=== PATIENT | female | born 1945 | race Caucasian/White ===

== ENCOUNTER → 2017-02-13 | Outpatient (CLI) | payer MEDICARE ==
--- NOTE | 2017-02-13 09:19 | MM ---
Reason for exam: follow-up at short interval from prior study. Last mammogram was performed 8 months ago. History: Patient is postmenopausal and has history of colon cancer at age 57. Benign excisional biopsy of the right breast. Took estrogen for 22 years 5 months beginning at age 44. Physical Findings: Nurse did not find any significant physical abnormalities on exam. MG 3D Diag Mammo W/Cad RT CC and MLO view(s) were taken of the right breast. Prior study comparison: June 04, 2016, bilateral MG 3d screening mammo w/cad. August 02, 2014, bilateral MG screening mammo w CAD. July 26, 2013, bilateral digital screening mammo w/CAD. The breast tissue is heterogeneously dense. This may lower the sensitivity of mammography. Finding: There are typically benign round, diffuse/scattered and grouped calcifications in the right breast. There is a chronic nodularity in the right breast. There is no discrete abnormality. These results were verbally communicated with the patient and result sheet given to the patient on 02/13/17. ASSESSMENT: Benign, BI-RAD 2 RECOMMENDATION: Return to routine screening mammogram schedule for both breasts. Back on schedule for May 2017.
== END | disposition home or self-care (01) ==
LOC: RADMAMWWP 07:04
PROVIDERS: ATTEND Family Medicine
DX: N63 Unspecified lump in breast (principal)
CPT/HCPCS: G0206; G0279

== ENCOUNTER → 2019-07-20 | Outpatient (CLI) | payer MEDICARE ==
--- NOTE | 2019-07-22 09:58 | MM ---
Reason for exam: screening (asymptomatic). Last mammogram was performed 2 years and 5 months ago. History: Patient is postmenopausal and has history of colon cancer at age 57. Family history of breast cancer in daughter at age 52. Benign excisional biopsy of the right breast. Taking estrogen for 22 years 5 months beginning at age 44. Physical Findings: A clinical breast exam by your physician is recommended on an annual basis and results should be correlated with mammographic findings. MG 3D Screening Mammo W/Cad Bilateral CC and MLO view(s) were taken. Prior study comparison: February 13, 2017, right breast MG 3d diag mammo w/cad RT. June 04, 2016, bilateral MG 3d screening mammo w/cad. There are scattered fibroglandular densities. No significant changes when compared with prior studies. ASSESSMENT: Benign, BI-RAD 2 RECOMMENDATION: Routine screening mammogram of both breasts in 1 year.
== END | disposition home or self-care (01) ==
LOC: RADMAMWWP 14:38
PROVIDERS: ATTEND Family Medicine
DX: Z12.31 Encounter for screening mammogram for malignant neoplasm of breast (principal)
CPT/HCPCS: 77063; 77067

== ENCOUNTER → 2020-07-31 | Outpatient (CLI) | payer MEDICARE ==
--- NOTE | 2020-07-31 17:11 | BD ---
EXAMINATION TYPE: Axial Bone Density DATE OF EXAM: 07/31/2020 COMPARISON: NONE CLINICAL HISTORY: Height: 65 Weight: 152.0 FRAX RISK QUESTIONS: Alcohol (3 or more units per day): no Family History (Parent hip fracture): no Glucocorticoids (More than 3mos): no (Ex: prednisone, prednisolone, methylprednisolone, dexamethasone, and hydrocortisone). History of Fracture in Adulthood: no Secondary Osteoporosis: 1. Type 1 Diabetes: no 2. Hyperthyroidism: no 3. Menopause before 45: yes 4. Malnutrition: no 5. Chronic liver disease: no Rheumatoid Arthritis: yes Current Tobacco Use: no RISK FACTORS HISTORY OF: Family History of Osteoporosis: no Active: yes Diet low in dairy products/other sources of calcium: yes Postmenopausal woman: Take estrogen and/or progesterone medications: yes How long: since age 44 Lost more than 2 inches in height since high school: no MEDICATIONS: imuran, gabapentin, celebrex, estradiol, flexeril, atenolol, xanax, lomotil, vit c Additional History: EXAM MEASUREMENTS: Bone mineral densitometry was performed using the Taplet System. Bone mineral density as measured about the Lumbar spine is: ----- L1-L4(G/cm2): 1.377 T Score Values are as follows: ----- L2: 1.3 ----- L3: 2.2 ----- L4: 2.0 ----- L1-L4: 1.6 Bone mineral density has: increased 22.7 % since study of: 09.11.2001 Bone mineral density about the R hip (g/cm2): 0.872 Bone mineral density about the L hip (g/cm2): 0.811 T Score values are as follows: -----R Neck: -1.2 -----L Neck: -1.6 -----R Total: -0.6 -----L Total: -0.9 Bone mineral density has: increased 7.3 % since study of: 09.11.2001 IMPRESSION: Osteopenia (T Score between -2.5 and -1). There is slightly increased risk of fracture and the patient may be considered for treatment. Re-Screen 2-5 years. NOTE: T-SCORE=SD OF THE YOUNG ADULT MEAN.
--- NOTE | 2020-08-01 10:16 | MM ---
Reason for exam: screening (asymptomatic). Last mammogram was performed 1 year ago. History: Patient is postmenopausal and has history of colon cancer at age 57. Family history of breast cancer in daughter at age 52. Benign excisional biopsy of the right breast. Taking estrogen for 22 years 5 months beginning at age 44. Physical Findings: A clinical breast exam by your physician is recommended on an annual basis and results should be correlated with mammographic findings. MG 3D Screening Mammo W/Cad Bilateral CC and MLO view(s) were taken. Prior study comparison: July 20, 2019, bilateral MG 3d screening mammo w/cad. February 13, 2017, right breast MG 3d diag mammo w/cad RT. There are scattered fibroglandular densities. Finding: There are typically benign round, diffuse/scattered and grouped calcifications in both breasts. There is no discrete abnormality. ASSESSMENT: Benign, BI-RAD 2 RECOMMENDATION: Routine screening mammogram of both breasts in 1 year.
== END | disposition home or self-care (01) ==
LOC: RADMAMWWP 08:16
PROVIDERS: ATTEND Family Medicine
DX: Z12.31 Encounter for screening mammogram for malignant neoplasm of breast (principal); M85.80 Other specified disorders of bone density and structure, unspecified site; Z80.3 Family history of malignant neoplasm of breast
CPT/HCPCS: 77063; 77067; 77080

== ENCOUNTER → 2021-09-12 | Outpatient (CLI) | payer MEDICARE ==
--- NOTE | 2021-09-13 14:26 | MM ---
Reason for exam: screening (asymptomatic). Last mammogram was performed 1 year and 1 month ago. History: Patient is postmenopausal and has history of colon cancer at age 57. Family history of breast cancer in daughter at age 52. Benign excisional biopsy of the right breast. Taking estrogen for 23 years 5 months beginning at age 44. Physical Findings: A clinical breast exam by your physician is recommended on an annual basis and results should be correlated with mammographic findings. MG 3D Screening Mammo W/Cad Bilateral CC and MLO view(s) were taken. Prior study comparison: July 31, 2020, bilateral MG 3d screening mammo w/cad. July 20, 2019, bilateral MG 3d screening mammo w/cad. There are scattered fibroglandular densities. Focal asymmetry left breast. No significant changes when compared with prior studies. ASSESSMENT: Benign, BI-RAD 2 RECOMMENDATION: Routine screening mammogram of both breasts in 1 year.
== END | disposition home or self-care (01) ==
LOC: RADMAMWWP 08:26
PROVIDERS: ATTEND Family Medicine
DX: Z12.31 Encounter for screening mammogram for malignant neoplasm of breast (principal); Z85.038 Personal history of other malignant neoplasm of large intestine; Z80.3 Family history of malignant neoplasm of breast
CPT/HCPCS: 77063; 77067

== ENCOUNTER → 2022-07-17 | Outpatient (CLI) | payer MEDICARE ==
--- NOTE | 2022-07-17 15:51 | XR ---
EXAMINATION TYPE: XR chest 2V DATE OF EXAM: 07/17/2022 COMPARISON: NONE TECHNIQUE: PA and lateral views submitted. HISTORY: Presurgical testing FINDINGS: The lungs are clear and there is no pneumothorax, pleural effusion, or focal pneumonia. Heart size normal. No overt failure. Hyperinflation suggests COPD. Degenerative change of the spine. Atheroscler otic change aorta. IMPRESSION: 1. No acute process. Correlate for COPD.
--- NOTE | 2022-07-17 15:52 | XR ---
EXAMINATION TYPE: XR cervical spine comp DATE OF EXAM: 07/17/2022 COMPARISON: NONE HISTORY: Pain TECHNIQUE: Four views are submitted. FINDINGS: The odontoid is intact. There are no compression deformities. The prevertebral soft tissue structur es are within normal limits. There is hypertrophic spurring and posterior spondylosis C4-5, C5-6 and C6-C7. Severe degenerative disc disease. Slight anterolisthesis C4 on C5 with mild multilevel facet a rthropathy. Bilateral foraminal encroachment suspected. IMPRESSION: 1. Severe degenerative disc disease at multiple levels with facet arthropathy and suspected foraminal encroachment. Raises the question of canal stenosis at levels C4-5 and C5-C6. Recommend follow-up MR I.
[2022-07-17 19:09] LABS: African American GFR (CKD) 59.2 (60.0-200.0); Albumin 4.6 g/dL (3.8-4.9); Albumin/Globulin Ratio 2.17 (1.60-3.17); Anion Gap 9.4 mmol/L (10.00-18.00); BUN/Creat Ratio 22.24 Ratio (12.00-20.00); Blood Urea Nitrogen 23.8 mg/dL (9.0-27.0); Calcium 9.8 mg/dL (8.7-10.3); Carbon Dioxide 27.7 mmol/L (20.0-27.5); Globulin 2.1 g/dL (1.6-3.3); Non-African American GFR(CKD) 51.1 (60.0-200.0); Potassium 4.2 mmol/L (3.5-5.5); Total Bilirubin 0.3 mg/dL (0.30-1.20); Total Protein 6.7 g/dL (6.2-8.2)
[2022-07-17 19:15] LABS: Basophils # (A) 0.04 X 10*3/uL (0.00-0.10); Basophils % (A) 0.6 %; Eosinophils # (A) 0.11 X 10*3/uL (0.04-0.35); Eosinophils % (A) 1.7 %; HGB 11.8 g/dL (12.0-15.0); INR 0.9 (0.90-1.11); Immature Grans, Automated 0.5 %; Lymphocytes # (A) 0.41 X 10*3/uL (0.90-5.00); Lymphocytes % (A) 6.3 %; MCH 34.4 pg (27.0-32.0); MCHC 33.7 g/dL (32.0-37.0); Mean Platelet Volume 11.5 fL (9.5-12.2); Monocytes # (A) 0.64 X 10*3/uL (0.20-1.00); Monocytes % (A) 9.8 %; NRBC Per 100 WBC 0 /100 WBCS (0.0-0.0); Neutrophils # (A) 5.32 X 10*3/uL (1.80-7.70); Neutrophils % (A) 81.1 %; Platelet Count 147 X 10*3/uL (140-440); Prothrombin Time 10.2 sec (9.9-11.9); RBC 3.43 X 10*6/uL (4.10-5.20); RDW 14.2 % (11.5-14.5); WBC 6.55 X 10*3/uL (4.50-10.00)
== END | disposition home or self-care (01) ==
LOC: LABWHC1 14:36
PROVIDERS: ATTEND Family Medicine
DX: Z01.818 Encounter for other preprocedural examination (principal); M50.30 Other cervical disc degeneration, unspecified cervical region; M47.812 Spondylosis without myelopathy or radiculopathy, cervical region; M48.02 Spinal stenosis, cervical region
CPT/HCPCS: 36415; 71046; 72050; 80053; 84443; 85025; 85610

== ENCOUNTER → 2022-12-26 | Outpatient (CLI) | payer MEDICARE ==
--- NOTE | 2022-12-26 21:02 | BD ---
EXAMINATION TYPE: Axial Bone Density DATE OF EXAM: 12/26/2022 COMPARISON: 07/31/2020 CLINICAL HISTORY: 77 years year old Female. ICD-10 CODE: M89.9 DISORDER OF BONE Height: 5 FT 5 IN Weight: 151 FRAX RISK QUESTIONS: Alcohol (3 or more units per day): NO Family History (Parent hip fracture): NO Glucocorticoids (More than 3mos): NO (Ex: prednisone, prednisolone, methylprednisolone, dexamethasone, and hydrocortisone). History of Fracture in Adulthood: NO Secondary Osteoporosis: 1. Type 1 Diabetes: NO 2. Hyperthyroidism: NO 3. Menopause before 45: YES 4. Malnutrition: NO 5. Chronic liver disease: NO Rheumatoid Arthritis: YES Current Tobacco Use:FORMER RISK FACTORS HISTORY OF: Surgery to Spine/Hip(right/left)/Wrist (right/left): NO Family History of Osteoporosis: NO Active: YES Diet low in dairy products/other sources of calcium: NO Postmenopausal woman: YES Take estrogen and/or progesterone medications: YES How lon YEARS Lost more than 2 inches in height since high school: NO Frequent falls: NO Poor Health: GOOD Hyperparathyroidism: NO Adrenal Insufficiency: NO MEDICATIONS: Additional Medications: ESTRADIOL, HYDROXYCHLOROQUINE,IMURAN, GABAPENTIN, ATENOLOL, SIMVASTATIN, FAUSTINO AX, LOMOTIL, ACET/CODIENE Additional History: EXAM MEASUREMENTS: Bone mineral densitometry was performed using the GIROPTIC System. Bone mineral density as measured about the Lumbar spine is: ----- L1-L4(G/cm2): 1.354 T Score Values are as follows: ----- L1: 0.5 ----- L2: 1.1 ----- L3: 2.2 ----- L4: 1.8 ----- L1-L4: 1.5 Bone mineral density has: DECREASE -1.5 % since : 2019 Bone mineral density about the R hip (g/cm2): 0.826 Bone mineral density about the L hip (g/cm2): 0.789 T Score values are as follows: -----R Neck: -1.5 -----L Neck: -1.8 -----R Total: -1.0 -----L Total: -1.1 Bone mineral density has: DECREASED -4.2 % since study of: 2019 FRAX%s: The graph provided illustrates a 16.5 % chance for a major osteoporotic fx and a 4.3 % chance for the hips probability for fx in 10 years time. IMPRESSION: Osteopenia (T Score between -2.5 and -1). There is slightly increased risk of fracture and the patient may be considered for treatment. Re-Screen 2-5 years. NOTE: T-SCORE=SD OF THE YOUNG ADULT MEAN.
--- NOTE | 2022-12-27 08:56 | MM ---
Reason for Exam: Screening (asymptomatic). Last mammogram was performed 1 year(s) and 3 month(s) ago. Patient History: Menarche at age 14. First Full-Term at age 21. Left ovary removed at age 44. Right ovary removed at age 44. Hysterectomy at age 44. Postmenopausal. Colorectal cancer, age 57. Currently using Estrogen, beginning at age 44 for 23 years, 5 months. Benign Excisional Biopsy on the right side. Daughter had breast cancer, age 52. Risk Values: Jessica 5 year model risk: 3.9%. NCI Lifetime model risk: 8.2%. Prior Study Comparison: 07/20/2019 Bilateral Screening Mammogram, [facility]. 07/31/2020 Bilateral Screening Mammogram, [facility]. 09/12/2021 Bilateral Screening Mammogram, [facility]. Tissue Density: There are scattered fibroglandular densities. Findings: Analyzed By CAD. Pattern is symmetrical and stable. Benign punctate calcifications are present bilaterally. Focal asymmetry is upper outer left breast. This is stable from comparison. No suspicious groups of microcalcifications, spiculated or lobular masses, architectural distortion or other secondary signs of malignancy are mammographically apparent. Overall Assessment: Benign, BI-RAD 2 Management: Screening Mammogram of both breasts in 1 year. A negative mammogram report should not preclude additional follow up of suspicious palpable abnormalities. Patient should continue monthly self breast exam. A clinical breast exam by your physician is recommended on an annual basis and results should be correlated with mammographic findings. Electronically signed and approved by: Isaias Paiz D.O. Radiologis
== END | disposition home or self-care (01) ==
LOC: RADMAMWWP 13:59
PROVIDERS: ATTEND Family Medicine
DX: Z12.31 Encounter for screening mammogram for malignant neoplasm of breast (principal); M85.89 Other specified disorders of bone density and structure, multiple sites; Z80.3 Family history of malignant neoplasm of breast; Z78.0 Asymptomatic menopausal state
CPT/HCPCS: 77063; 77067; 77080

== ENCOUNTER → 2024-06-25 | Outpatient (CLI) | payer MEDICARE ==
--- NOTE | 2024-06-27 12:31 | PE ---
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 Images are reviewed on the computer in the coronal, a xial, and sagittal planes. Reconstructed rotating images are created on independent workstation and reviewed on the computer. A non-contrast CT is performed in conjunction with the PET scan. Glucose level 88 mg/dL CT DLP: 931 mGycm, Automated exposure control for dose reduction was used. COMPARISON: CT 02/18/2022, 03/06/2015, PET/CT None, MRI: None FINDINGS: Mediastinal SUV mean is 1.6. Hepatic parenchyma SUV mean is 2.9. SKULL BASE AND NECK: No suspicious radiotracer activity. CHEST, MEDIASTINUM, AND HILAR REGION: No suspicious radiotracer activity. ABDOMEN AND PELVIS: No suspicious radiotracer activity. MUSCULOSKELETAL STRUCTURES: No suspicious radiotracer activity. No abnormal uptake within the lower e xtremities. Physiologic uptake within the muscles of the anterior calf bilaterally lateral compartmen t on the right. OTHER CT: Atherosclerosis of the chest. As mildly enlarged for size. Ventral wall hernia on the upper abdomen. Containing inguinal hernias bilaterally. 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 IMPRESSION: No suspicious radiotracer activity.
== END | disposition home or self-care (01) ==
LOC: RADPETMAIN 07:13
PROVIDERS: ATTEND Internal Medicine Hematology & Oncology
DX: C44.82 Squamous cell carcinoma of overlapping sites of skin (principal); M06.9 Rheumatoid arthritis, unspecified; R21 Rash and other nonspecific skin eruption; C18.9 Malignant neoplasm of colon, unspecified
CPT/HCPCS: 78816; A9552

== ENCOUNTER 2024-06-28 10:14 | Inpatient (IN) | payer MEDICARE ==
--- NOTE | 2024-06-28 11:24 | ED ---
Fever HPI - General Chief Complaint: Fever Stated Complaint: fever Time Seen by Provider: 06/28/24 11:21 Source: patient, family, RN notes reviewed Mode of arrival: wheelchair Limitations: no limitations - History of Present Illness Initial Comments: 78-year-old female with history of skin cancer presenting with fever x 1 day. States she was doing yard work outside yesterday when she began to feel very hot and her body began to ache. Her daughters are present and reports patient seems to be more short of breath as well, however patient denies nasal congestion, cough. Patient had a skin biopsy performed [address] James. The daughters report that she has had a fever after 2 skin biopsies previously which were attributed to skin infections. Therefore, they placed her on doxycycline to prevent a skin infection after the biopsy. Patient only took 1 days worth of the medication, however denies pain or redness around site of biopsy (right lower leg and left upper arm). Last Tylenol was this morning. Denies CHF or CKD. - Related Data Home Medications Medication Instructions Recorded Confirmed atenoloL [Tenormin] 25 mg PO DAILY 08/31/15 06/28/24 ALPRAZolam [Xanax] 0.25 mg PO DAILY 01/06/16 06/28/24 Gabapentin [Neurontin] 800 mg PO TID 07/17/22 06/28/24 Hydroxychloroquine Sulfate 200 mg PO BID 07/17/22 06/28/24 [Plaquenil] Acetaminophen Tab [Tylenol] 650 mg PO Q6H PRN 06/28/24 06/28/24 Acetaminophen-Codeine 300-30mg 1 tab PO Q12H PRN 06/28/24 06/28/24 [Tylenol w/codeine #3] Amitriptyline HCl [Elavil] 50 mg PO HS 06/28/24 06/28/24 Citalopram Hydrobromide [CeleXA] 10 mg PO DAILY 06/28/24 06/28/24 Diphenoxylate HCl/Atropine 1 tab PO QID PRN 06/28/24 06/28/24 [Lomotil 2.5-0.025 mg Tablet] Doxycycline [Vibramycin] 100 mg PO BID 06/28/24 06/28/24 Magnesium 250 mg PO DAILY 06/28/24 06/28/24 Rosuvastatin Calcium [Crestor] 5 mg PO MYERS 06/28/24 06/28/24 estradioL [Estrace] 0.5 mg PO DIRECTED 06/28/24 06/28/24 Allergies Allergy/AdvReac Type Severity Reaction Status Date / Time Penicillins Allergy Rash/Hives Verified 06/28/24 11:55 Review of Systems ROS Statement: Those systems with pertinent positive or pertinent negative responses have been documented in the HPI. ROS Other: All systems not noted in ROS Statement are negative. Past Medical History Past Medical History: Cancer, Rheumatoid Arthritis (RA) Additional Past Medical History / Comment(s): colon cancer, skin cancer, History of Any Multi-Drug Resistant Organisms: None Reported Past Surgical History: Appendectomy, Hysterectomy Additional Past Surgical History / Comment(s): partial thyroidectomy, malignant tumor removed from colo, fibroid tumors removed from breast, skin biopsy, Past Psychological History: No Psychological Hx Reported Smoking Status: Former smoker Past Alcohol Use History: None Reported Past Drug Use History: None Reported General Exam Limitations: no limitations General appearance: alert, in no apparent distress Head exam: Present: atraumatic, normocephalic, normal inspection Eye exam: Present: normal appearance, PERRL, EOMI. Absent: scleral icterus, conjunctival injection, periorbital swelling ENT exam: Present: normal exam, normal oropharynx, mucous membranes moist Respiratory exam: Present: normal lung sounds bilaterally. Absent: respiratory distress, wheezes, rales, rhonchi, stridor Cardiovascular Exam: Present: regular rate, normal rhythm, normal heart sounds. Absent: systolic murmur, diastolic murmur, rubs, gallop, clicks GI/Abdominal exam: Present: soft, normal bowel sounds. Absent: distended, tenderness, guarding, rebound, rigid Extremities exam: Present: normal inspection, full ROM, normal capillary refill. Absent: tenderness, pedal edema, joint swelling, calf tenderness Back exam: Present: normal inspection Neurological exam: Present: alert, oriented X3 Psychiatric exam: Present: normal affect, normal mood Skin exam: Present: warm, dry, intact, normal color. Absent: rash Course Vital Signs 06/28/24 06/28/24 06/28/24 10:17 13:11 14:55 Temperature 102.0 F H 98.3 F 98.2 F Pulse Rate 107 H 77 76 Respiratory 18 18 18 Rate Blood Pressure 96/61 73/54 76/42 O2 Sat by Pulse 90 L 95 Oximetry 06/28/24 18:37 Temperature 97.8 F Pulse Rate 76 Respiratory 15 Rate Blood Pressure 84/53 O2 Sat by Pulse 94 L Oximetry Medical Decision Making - Medical Decision Making Was pt. sent in by a medical professional or institution (, PA, OPTICAL [employer] DRILL OPERATOR, urgent care, hospital, or intermediate...) When possible be specific @ -No Did you speak to anyone other than the patient for history (EMS, parent, family, police, friend...)? What history was obtained from this source @ -Patient's daughters submitted straight Did you review nursing and triage notes (agree or disagree)? Why? @ -I reviewed and agree with nursing and triage notes Were old charts reviewed (outside hosp., previous admission, EMS record, old EKG, old radiological studies, urgent care reports/EKG's, intermediate records)? Report findings @ -No old charts were reviewed Differential Diagnosis (chest pain, altered mental status, abdominal pain women, abdominal pain men, vaginal bleeding, weakness, fever, dyspnea, syncope, headache, dizziness, GI bleed, back pain, seizure, CVA, palpatations, mental health, musculoskeletal)? @ -Differential Fever: Pneumonia, viral URI, endocarditis, myocarditis, pericarditis, otitis, sinusitis, peritonsillar Abscess, retropharyngeal Abscess, epiglottitis, peritonitis, appendicitis, Dionne cystitis, diverticulitis, hepatitis, colitis, UTI, PID, TOA, pyelonephritis, prostatitis, epididymitis, meningitis, e ncephalitis, pulmonary embolism, CVA, thyroid storm, pancreatitis, adrenal crisis, cavernous sinus thrombosis, this is not meant to be an all-inclusive list. EKG interpreted by me (3pts min.). @ -As above X-rays interpreted by me (1pt min.). @ -Chest x-ray revealed low lung volumes with hazy appearance could represent atelectasis versus pulmonary edema CT interpreted by me (1pt min.). @ -None done U/S interpreted by me (1pt. min.). @ -None done What testing was considered but not performed or refused? (CT, X-rays, U/S, labs)? Why? @ -None What meds were considered but not given or refused? Why? @ -None Did you discuss the management of the patient with other professionals (professionals i.e. , PA, [employer] DRILL OPERATOR, lab, RT, psych nurse, social security assessor, parboiler, teacher, ambulance officer, counter caser)? Give summary @ -I spoke with Dr. Egan who accepted admission at this time for pneumonia with cardiology consult to rule out NSTEMI Was smoking cessation discussed for >3mins.? @ -No Was critical care preformed (if so, how long)? @ -No Were there social determinants of health that impacted care today? How? (Homelessness, low income, unemployed, alcoholism, drug addiction, transportation, low edu. Level, literacy, decrease access to med. care, fpc, rehab)? @ -No Was there de-escalation of care discussed even if they declined (Discuss DNR or withdrawal of care, Hospice)? DNR status @ -No What co-morbidities impacted this encounter? (DM, HTN, Smoking, COPD, CAD, Cancer, CVA, ARF, Chemo, Hep., AIDS, mental health diagnosis, sleep apnea, morbid obesity)? @ -None Was patient admitted / discharged? Hospital course, mention meds given and route, prescriptions, significant lab abnormalities, going to OR and other pertinent info. @ -Patient was admitted. Patient was seen and evaluated for fever x 1 day with shortness of breath. Patient was initially febrile at 102, tachycardic at 107, and blood pressure was 96/61. Patient was initially satting 90% on room air but improved to 94% upon reevaluation. Physical examination is unremarkable. No sign of cellulitis. Lab work including CBC, CMP, lactic acid, troponin, BNP is remarkable for BNP 5950 and troponin of 1.360. Lactic is normal. Chest x-ray reveals low lung volumes with hazy appearance. Urinalysis was largely unremarkable. COVID, flu, RSV are negative. Blood cultures were taken and patient was started on IV Rocephin and azithromycin. Aspirin was given and heparin drip was started. Patient was given a total of 2 L of fluids and started on a 150 cc/h fluid drip. Patient's blood pressures were closely monitored and improved slightly with fluids. I spoke with Dr. Egan who accepts admission at this time for pneumonia with cardiology consult to rule out NSTEMI. Patient and family are agreeable to plan. Undiagnosed new problem with uncertain prognosis? @ -No Drug Therapy requiring intensive monitoring for toxicity (Heparin, Nitro, Insulin, Cardizem)? @ -No Were any procedures done? @ -No Diagnosis/symptom? @ -Pneumonia, NSTEMI rule out Acute, or Chronic, or Acute on Chronic? @ -Acute Uncomplicated (without systemic symptoms) or Complicated (systemic symptoms)? @ -Complicated Side effects of treatment? @ -No Exacerbation, Progression, or Severe Exacerbation? @ -No Poses a threat to life or bodily function? How? (Chest pain, USA, SD, pneumonia, PE, COPD, DKA, ARF, appy, cholecystitis, CVA, Diverticulitis, Homicidal, Suicidal, threat to staff... and all critical care pts) @ -Yes - Lab Data Result diagrams: 06/28/24 11:21 06/28/24 11:21 Lab Results 06/28/24 06/28/24 06/28/24 Range/Units 11:21 11:21 11:21 WBC 9.8 (3.8-10.6) k/uL RBC 4.52 (3.80-5.40) m/uL Hgb 13.6 (11.4-16.0) gm/dL Hct 41.5 (34.0-46.0) % MCV 91.8 (80.0-100.0) fL MCH 30.1 (25.0-35.0) pg MCHC 32.8 (31.0-37.0) g/dL RDW 14.5 (11.5-15.5) % Plt Count 180 (150-450) k/uL MPV 7.6 Neutrophils % 91 % Lymphocytes % 2 % Monocytes % 3 % Eosinophils % 2 % Basophils % 1 % Neutrophils # 9.0 H (1.3-7.7) k/uL Lymphocytes # 0.2 L (1.0-4.8) k/uL Monocytes # 0.3 (0-1.0) k/uL Eosinophils # 0.2 (0-0.7) k/uL Basophils # 0.1 (0-0.2) k/uL Sodium 138 (137-145) mmol/L Potassium 4.5 (3.5-5.1) mmol/L Chloride 107 (98-107) mmol/L Carbon Dioxide 24 (22-30) mmol/L Anion Gap 7 mmol/L BUN 18 H (7-17) mg/dL Creatinine 1.00 (0.52-1.04) mg/dL Est GFR (CKD-EPI)AfAm 64 (>60 ml/min/1.73 sqM) Est GFR (CKD-EPI)NonAf 55 (>60 ml/min/1.73 sqM) Glucose 98 (74-99) mg/dL Plasma Lactic Acid Stanley (0.7-2.0) mmol/L Calcium 8.7 (8.4-10.2) mg/dL Total Bilirubin 1.3 (0.2-1.3) mg/dL AST 65 H (14-36) U/L ALT 51 H (4-34) U/L Alkaline Phosphatase 82 (38-126) U/L Troponin I (0.000-0.034) ng/mL NT-Pro-B Natriuret Pep pg/mL Total Protein 6.1 L (6.3-8.2) g/dL Albumin 3.8 (3.5-5.0) g/dL Urine Color Yellow Urine Appearance Clear (Clear) Urine pH 6.5 (5.0-8.0) Ur Specific Ripley 1.023 (1.001-1.035) Urine Protein 1+ H (Negative) Urine Glucose (UA) Negative (Negative) Urine Ketones Negative (Negative) Urine Blood Negative (Negative) Urine Nitrite Negative (Negative) Urine Bilirubin Negative (Negative) Urine Urobilinogen <2.0 (<2.0) mg/dL Ur Leukocyte Esterase Negative (Negative) Urine RBC 1 (0-5) /hpf Urine WBC 1 (0-5) /hpf Ur Squamous Epith Cells 1 (0-4) /hpf Urine Bacteria Rare H (None) /hpf Hyaline Casts 1 (0-2) /lpf Urine Mucus Occasional H (None) /hpf Influenza Type A (PCR) (Not Detectd) Influenza Type B (PCR) (Not Detectd) RSV (PCR) (Not Detectd) SARS-CoV-2 (PCR) (Not Detectd) Group A Strep (PCR) (Not Detectd) 06/28/24 06/28/24 06/28/24 Range/Units 11:21 11:21 11:21 WBC (3.8-10.6) k/uL RBC (3.80-5.40) m/uL Hgb (11.4-16.0) gm/dL Hct (34.0-46.0) % MCV (80.0-100.0) fL MCH (25.0-35.0) pg MCHC (31.0-37.0) g/dL RDW (11.5-15.5) % Plt Count (150-450) k/uL MPV Neutrophils % % Lymphocytes % % Monocytes % % Eosinophils % % Basophils % % Neutrophils # (1.3-7.7) k/uL Lymphocytes # (1.0-4.8) k/uL Monocytes # (0-1.0) k/uL Eosinophils # (0-0.7) k/uL Basophils # (0-0.2) k/uL Sodium (137-145) mmol/L Potassium (3.5-5.1) mmol/L Chloride (98-107) mmol/L Carbon Dioxide (22-30) mmol/L Anion Gap mmol/L BUN (7-17) mg/dL Creatinine (0.52-1.04) mg/dL Est GFR (CKD-EPI)AfAm (>60 ml/min/1.73 sqM) Est GFR (CKD-EPI)NonAf (>60 ml/min/1.73 sqM) Glucose (74-99) mg/dL Plasma Lactic Acid Stanley 0.8 (0.7-2.0) mmol/L Calcium (8.4-10.2) mg/dL Total Bilirubin (0.2-1.3) mg/dL AST (14-36) U/L ALT (4-34) U/L Alkaline Phosphatase (38-126) U/L Troponin I (0.000-0.034) ng/mL NT-Pro-B Natriuret Pep pg/mL Total Protein (6.3-8.2) g/dL Albumin (3.5-5.0) g/dL Urine Color Urine Appearance (Clear) Urine pH (5.0-8.0) Ur Specific Ripley (1.001-1.035) Urine Protein (Negative) Urine Glucose (UA) (Negative) Urine Ketones (Negative) Urine Blood (Negative) Urine Nitrite (Negative) Urine Bilirubin (Negative) Urine Urobilinogen (<2.0) mg/dL Ur Leukocyte Esterase (Negative) Urine RBC (0-5) /hpf Urine WBC (0-5) /hpf Ur Squamous Epith Cells (0-4) /hpf Urine Bacteria (None) /hpf Hyaline Casts (0-2) /lpf Urine Mucus (None) /hpf Influenza Type A (PCR) Not Detected (Not Detectd) Influenza Type B (PCR) Not Detected (Not Detectd) RSV (PCR) Not Detected (Not Detectd) SARS-CoV-2 (PCR) Not Detected (Not Detectd) Group A Strep (PCR) NOT DETECTED (Not Detectd) 06/28/24 06/28/24 Range/Units 11:21 14:10 WBC (3.8-10.6) k/uL RBC (3.80-5.40) m/uL Hgb (11.4-16.0) gm/dL Hct (34.0-46.0) % MCV (80.0-100.0) fL MCH (25.0-35.0) pg MCHC (31.0-37.0) g/dL RDW (11.5-15.5) % Plt Count (150-450) k/uL MPV Neutrophils % % Lymphocytes % % Monocytes % % Eosinophils % % Basophils % % Neutrophils # (1.3-7.7) k/uL Lymphocytes # (1.0-4.8) k/uL Monocytes # (0-1.0) k/uL Eosinophils # (0-0.7) k/uL Basophils # (0-0.2) k/uL Sodium (137-145) mmol/L Potassium (3.5-5.1) mmol/L Chloride (98-107) mmol/L Carbon Dioxide (22-30) mmol/L Anion Gap mmol/L BUN (7-17) mg/dL Creatinine (0.52-1.04) mg/dL Est GFR (CKD-EPI)AfAm (>60 ml/min/1.73 sqM) Est GFR (CKD-EPI)NonAf (>60 ml/min/1.73 sqM) Glucose (74-99) mg/dL Plasma Lactic Acid Stanley (0.7-2.0) mmol/L Calcium (8.4-10.2) mg/dL Total Bilirubin (0.2-1.3) mg/dL AST (14-36) U/L ALT (4-34) U/L Alkaline Phosphatase (38-126) U/L Troponin I 1.360 H* (0.000-0.034) ng/mL NT-Pro-B Natriuret Pep 5950 pg/mL Total Protein (6.3-8.2) g/dL Albumin (3.5-5.0) g/dL Urine Color Urine Appearance (Clear) Urine pH (5.0-8.0) Ur Specific Ripley (1.001-1.035) Urine Protein (Negative) Urine Glucose (UA) (Negative) Urine Ketones (Negative) Urine Blood (Negative) Urine Nitrite (Negative) Urine Bilirubin (Negative) Urine Urobilinogen (<2.0) mg/dL Ur Leukocyte Esterase (Negative) Urine RBC (0-5) /hpf Urine WBC (0-5) /hpf Ur Squamous Epith Cells (0-4) /hpf Urine Bacteria (None) /hpf Hyaline Casts (0-2) /lpf Urine Mucus (None) /hpf Influenza Type A (PCR) (Not Detectd) Influenza Type B (PCR) (Not Detectd) RSV (PCR) (Not Detectd) SARS-CoV-2 (PCR) (Not Detectd) Group A Strep (PCR) (Not Detectd) - EKG Data -: EKG Interpreted by Me EKG Comments: EKG reveals normal sinus rhythm with no ST changes. Ventricular rate 75 bpm, MD interval 188, QRS duration 82, QT/QTc 428/456 Disposition Clinical Impression: Pneumonia Disposition: ADMITTED IP TO THIS HOSP Referrals: Angela Rice MD [Primary Care Provider] - 1-2 days Time of Disposition: 19:31
[2024-06-28] MEDS: SODIUM CHLORIDE 0.9% 1,000 ML IV STA ×3 (11:33→18:24)
[2024-06-28] MEDS: IBUPROFEN 600 MG TAB PO STA (11:33)
[2024-06-28 11:43] LABS: Basophils # (A) 0.1 k/uL (0-0.2); Basophils % (A) 1 %; Eosinophils # (A) 0.2 k/uL (0-0.7); Eosinophils % (A) 2 %; HCT 41.5 % (34.0-46.0); HGB 13.6 gm/dL (11.4-16.0); Lymphocytes # (A) 0.2 k/uL (1.0-4.8); Lymphocytes % (A) 2 %; MCH 30.1 pg (25.0-35.0); MCHC 32.8 g/dL (31.0-37.0); MCV 91.8 fL (80.0-100.0); Mean Platelet Volume 7.6; Monocytes # (A) 0.3 k/uL (0-1.0); Monocytes % (A) 3 %; Neutrophils % (A) 91 %; Platelet Count 180 k/uL (150-450); RBC 4.52 m/uL (3.80-5.40); RDW 14.5 % (11.5-15.5); WBC 9.8 k/uL (3.8-10.6)
[2024-06-28 11:57] LABS: ALT 51 U/L (4-34); AST 65 U/L (14-36); African American GFR (CKD) 64 (>60 ml/min/1.73 sqM); Albumin 3.8 g/dL (3.5-5.0); Alkaline Phosphatase 82 U/L (38-126); Anion Gap 7 mmol/L; Blood Urea Nitrogen 18 mg/dL (7-17); Calcium 8.7 mg/dL (8.4-10.2); Carbon Dioxide 24 mmol/L (22-30); Chloride 107 mmol/L (98-107); Glucose 98 mg/dL (74-99); Non-African American GFR(CKD) 55 (>60 ml/min/1.73 sqM); Potassium 4.5 mmol/L (3.5-5.1); Sodium 138 mmol/L (137-145); Total Bilirubin 1.3 mg/dL (0.2-1.3); Total Protein 6.1 g/dL (6.3-8.2)
--- NOTE | 2024-06-28 12:28 | XR ---
EXAMINATION TYPE: XR chest 2V DATE OF EXAM: 06/28/2024 11:48 AM CLINICAL INDICATION:Female, 78 years old with history of fever; COMPARISON: Chest radiographs from 07/17/2022 TECHNIQUE: XR chest 2V Frontal view of the chest. FINDINGS: Lungs/Pleura: Low lung volumes are present. There is no evidence of pleural effusion, focal consolida tion, or pneumothorax. Pulmonary vascularity: Unremarkable. Heart/mediastinum: Cardiomediastinal silhouette is unremarkable. Musculoskeletal: No acute osseous pathology. IMPRESSION: Low lung volumes with a generalized hazy appearance which could represent atelectasis versus pulmonar y edema correlate with serum BNP.
[2024-06-28 13:22] LABS: Appearance,Urine Clear (Clear); Bacteria,Urine Rare /hpf; Bilirubin,Urine Negative (Negative); Blood,Urine Negative (Negative); Color,Urine Yellow; Glucose,Urine (UA) Negative (Negative); Hyaline Casts,Urine 1 /lpf (0-2); Ketones,Urine Negative (Negative); Leukocyte Esterase,Urine Negative (Negative); Mucus,Urine Occasional /hpf; Nitrite,Urine Negative (Negative); PH, Urine 6.5 (5.0-8.0); Protein,Urine 1+ (Negative); RBC,Urine 1 /hpf (0-5); Specific Gravity,Urine 1.023 (1.001-1.035); Squamous Epithelial Cell,Urine 1 /hpf (0-4); Urobilinogen,Urine <2.0 mg/dL (<2.0); WBC,Urine 1 /hpf (0-5)
[2024-06-28] MEDS: ASPIRIN 81 MG PO STA (17:50)
[2024-06-28] MEDS: HEPARIN SODIUM 1,000 UN/ML (10ML VL) IV ONE (17:53)
[2024-06-28] MEDS: HEPARIN SOD,PORK IN 0.45% NACL 25,000 UNIT in 0.45% NACL 1 250ML.BAG IV SCH (17:54)
[2024-06-28] MEDS ORDERED: NALOXONE 0.4 MG/ML 1 ML VIAL IV PRN (19:36)
[2024-06-28] MEDS ORDERED: HYDROmorphone 1 MG/ML 1 ML SYRINGE IVP PRN (19:36)
[2024-06-28] MEDS: AZITHROMYCIN 500 MG in SODIUM CHLORIDE 0.9% 250 ML IVPB STA (19:37)
[2024-06-28] MEDS: SODIUM CHLORIDE 0.9% 1,000 ML IV SCH (20:21)
[2024-06-28] MEDS: ACETAMINOPHEN TAB 325 MG TAB PO PRN (22:45)
[2024-06-28] MEDS ORDERED: ACETAMINOPHEN TAB 325 MG TAB PO PRN (23:16)
[2024-06-29] MEDS: SODIUM CHLORIDE 0.9% 1,000 ML IV SCH (00:03)
[2024-06-29] MEDS: HYDROcodone/APAP 5-325MG 1 EACH TAB PO PRN (05:29)
[2024-06-29] MEDS: atenoloL 25 MG TAB PO SCH (08:24)
[2024-06-29] MEDS: CITALOPRAM HYDROBROMIDE 10 MG TAB PO SCH (08:24)
[2024-06-29] MEDS: MAGNESIUM OXIDE 400 MG TAB PO SCH (08:24)
[2024-06-29] MEDS: ALPRAZolam 0.25 MG TAB PO SCH (08:24)
[2024-06-29] MEDS: GABAPENTIN 400 MG CAP PO SCH (08:24)
[2024-06-29] MEDS: HEPARIN SODIUM 1,000 UN/ML (10ML VL) IV PRN (09:50)
--- NOTE | 2024-06-29 13:19 | P.CRDCN ---
History of Present Illness Consult date: 06/29/24 History of present illness: HISTORY OF PRESENTING ILLNESS Patient is a 78-year-old female with past medical history of skin cancer s/p recent immunotherapy which was stopped because of reaction because of itching and swelling. She is following with Dr. James for this. He is known to Dr. Neal recently saw him in outpatient clinic did not have any cardiovascular iss ues at present. This time she presented to the hospital because of feeling weak, some bilateral chest heaviness, increased shortness of breath. At home there was also concern of possible fever. On admission ECG showed normal sinus rhythm, low voltage complexes, Troponin enzyme was elevated at 1.3, 0.5, 0.3. BUN 18, creatinine 1.0 REVIEW OF SYSTEMS 14 point review of system is negative except what is mentioned above in HPI. PHYSICAL EXAMINATION Vital signs reviewed. Head: Normocephalic. Eyes: Sclerae nonicteric. Neck: Brisk carotid upstroke, no jugular venous distention. Lungs: Clear to auscultation. Heart: Regular rate and rhythm, S1-S2, no S3, no murmur or rub. Abdomen: Soft nontender, positive bowel sounds. Extremities: No edema, intact distal pulses. Neuro: Alert, oritented, no focal deficits. Detailed neuro exam was not performed. ASSESSMENT Elevated troponin, likely NSTEMI Type I High suspicion for PE/DVT Shortness of breath Fever of unknown origin Skin cancer s/p immunotherapy PLAN Aspirin 81 mg, atorvastatin 40 mg, atenolol 25 mg daily Continue IV heparin drip Patient is on estrogen supplementation along with history of skin cancer on immunotherapy. Considering her presenting symptom of shortness of breath and fever there is a high possibility that patient might have pulmonary embolism. I will order a Doppler bilateral lower extremity and a CT angiogram to rule out PE. Will obtain an echocardiogram, Plan for cardiac catheterization tomorrow with Dr. Ángel Kaur MD, [facility], [facility] Thank you for allowing [facility] to participate in this patient's care. Feel free to reach out in case of any followup questions. Past Medical History Past Medical History: Atrial Fibrillation, Atrial Flutter, Cancer, Rheumatoid Arthritis (RA) Additional Past Medical History / Comment(s): colon cancer, skin cancer, History of Any Multi-Drug Resistant Organisms: None Reported Past Surgical History: Appendectomy, Hysterectomy Additional Past Surgical History / Comment(s): partial thyroidectomy, malignant tumor removed from colo, fibroid tumors removed from breast, skin biopsy, hemmroids removed, foot surgery Past Anesthesia/Blood Transfusion Reactions: No Reported Reaction Past Psychological History: No Psychological Hx Reported Smoking Status: Former smoker Past Alcohol Use History: None Reported Past Drug Use History: None Reported Medications and Allergies Home Medications Medication Instructions Recorded Confirmed Type atenoloL [Tenormin] 25 mg PO DAILY 08/31/15 06/28/24 History ALPRAZolam [Xanax] 0.25 mg PO DAILY 01/06/16 06/28/24 History Gabapentin [Neurontin] 800 mg PO TID 07/17/22 06/28/24 History Hydroxychloroquine Sulfate 200 mg PO BID 07/17/22 06/28/24 History [Plaquenil] Acetaminophen Tab [Tylenol] 650 mg PO Q6H PRN 06/28/24 06/28/24 History Acetaminophen-Codeine 300-30mg 1 tab PO Q12H PRN 06/28/24 06/28/24 History [Tylenol w/codeine #3] Amitriptyline HCl [Elavil] 50 mg PO HS 06/28/24 06/28/24 History Citalopram Hydrobromide [CeleXA] 10 mg PO DAILY 06/28/24 06/28/24 History Diphenoxylate HCl/Atropine 1 tab PO QID PRN 06/28/24 06/28/24 History [Lomotil 2.5-0.025 mg Tablet] Doxycycline [Vibramycin] 100 mg PO BID 06/28/24 06/28/24 History Magnesium 250 mg PO DAILY 06/28/24 06/28/24 History Rosuvastatin Calcium [Crestor] 5 mg PO MYERS 06/28/24 06/28/24 History estradioL [Estrace] 0.5 mg PO DIRECTED 06/28/24 06/28/24 History Allergies Allergy/AdvReac Type Severity Reaction Status Date / Time Penicillins Allergy Rash/Hives Verified 06/28/24 11:55 Physical Exam Vitals: Vital Signs Temp Pulse Pulse Resp BP BP BP 06/29/24 12:00 98.1 F 73 18 06/29/24 08:00 98.5 F 81 18 06/29/24 04:00 65 18 06/29/24 02:00 79 18 06/29/24 00:00 79 18 06/28/24 21:40 98.4 F 79 20 96/58 88/53 06/28/24 21:35 98.5 F 72 20 95/55 06/28/24 20:30 73 22 90/55 06/28/24 20:00 73 9 L 94/53 06/28/24 19:30 14 85/46 06/28/24 19:00 74 12 84/53 06/28/24 18:37 97.8 F 76 15 84/53 06/28/24 18:35 76 59 H 06/28/24 14:55 98.2 F 76 18 76/42 BP BP Pulse Ox 06/29/24 12:00 108/65 94 L 06/29/24 08:00 95/64 94 L 06/29/24 04:00 96/60 93 L 06/29/24 02:00 06/29/24 00:00 97/59 94 L 06/28/24 21:40 102/61 102/61 96 06/28/24 21:35 100 06/28/24 20:30 94 L 06/28/24 20:00 96 06/28/24 19:30 89 L 06/28/24 19:00 96 06/28/24 18:37 94 L 06/28/24 18:35 95 06/28/24 14:55 Intake and Output 06/28/24 06/29/24 06/29/24 22:59 06:59 14:59 Intake Total 52.264 81.347 Balance 52.264 81.347 Intake: Intake, IV Titration 52.264 81.347 Amount Heparin Sod,Pork in 0.45% 52.264 81.347 NaCl 25,000 unit In 0.45 % NaCl 1 250ml.bag @ 12 UNITS/KG/HR 9.417 mls/hr IV .Q24H [facility] Rx#: [id number] Other: Voiding Method Toilet Toilet Toilet # Voids 1 1 3 Weight 78.471 kg 89 kg Results 06/28/24 11:21 06/28/24 11:21 Cardiac Enzymes 06/28/24 06/28/24 06/28/24 Range/Units 14:10 20:56 23:58 Troponin I 1.360 H* 0.534 H* 0.394 H* (0.000-0.034) ng/mL Coagulation 06/28/24 06/29/24 Range/Units 22:14 06:52 APTT 83.0 H 41.9 H (22.0-30.0) sec Current Medications Generic Name Dose Route Start Last Admin Trade Name Freq PRN Reason Stop Dose Admin Acetaminophen 650 mg 06/28/24 19:36 06/29/24 09:50 Acetaminophen Tab 325 Mg Tab PO 650 mg Q6HR PRN Administration Mild Pain or Fever > 100.5 Acetaminophen 650 mg 06/28/24 23:16 Acetaminophen Tab 325 Mg Tab PO Q6H PRN Pain or Fever > 100.5 Acetaminophen/Codeine Phosphate 1 each 06/28/24 23:16 Acetaminophen-Codeine 300-30mg Tab PO Q12H PRN Pain Hydrocodone Bitart/Acetaminophen 1 each 06/28/24 19:36 06/29/24 05:29 Hydrocodone/Apap 5-325mg 1 Each Tab PO 1 each Q4HR PRN Administration Moderate Pain (Scale 4 to 6) Alprazolam 0.25 mg 06/29/24 09:00 06/29/24 08:24 Alprazolam 0.25 Mg Tab PO 0.25 mg DAILY [place] Administration Amitriptyline HCl 50 mg 06/29/24 21:00 Amitriptyline Hcl 25 Mg Tab PO HS [place] Aspirin 81 mg 06/29/24 13:15 Aspirin 81 Mg PO DAILY [facility] Atenolol 25 mg 06/29/24 09:00 06/29/24 08:24 Atenolol 25 Mg Tab PO 25 mg DAILY [place] Administration Atorvastatin Calcium 40 mg 06/29/24 21:00 Atorvastatin 40 Mg Tab PO HS [place] Citalopram Hydrobromide 10 mg 06/29/24 09:00 06/29/24 08:24 Citalopram Hydrobromide 10 Mg Tab PO 10 mg DAILY [place] Administration Diphenoxylate HCl/Atropine 1 each 06/28/24 23:16 Diphenox-Atrop 2.5-0.025 Mg 1 Each Tab PO QID PRN Diarrhea Estradiol 0.5 mg 06/28/24 23:30 06/29/24 00:02 Estradiol 0.5 Mg Tab PO Not Given DIRECTED [facility] Gabapentin 800 mg 06/29/24 09:00 06/29/24 08:24 Gabapentin 400 Mg Cap PO 800 mg TID [place] Administration Heparin Sodium (Porcine) 0 unit 06/28/24 16:44 06/29/24 09:50 Heparin Sodium 1,000 Un/Ml (10ml Vl) IV 2,225 unit Q6HR PRN Administration ptt values Protocol Hydromorphone HCl 1 mg 06/28/24 19:36 Hydromorphone 1 Mg/Ml 1 Ml Syringe IVP Q3HR PRN Severe Pain (Scale 7 to 10) Heparin Sodium/Sodium Chloride 250 mls @ 9.417 mls/hr 06/28/24 16:45 06/29/24 09:49 25,000 unit/ Sodium Chloride IV 12 units/kg/hr .Q24H [place] 9.417 mls/hr Titration Protocol 12 UNITS/KG/HR Sodium Chloride 1,000 mls @ 130 mls/hr 06/28/24 19:45 06/29/24 12:15 Saline 0.9% IV Not Given .Q7H42M [place] Sodium Chloride 1,000 mls @ 50 mls/hr 06/28/24 23:30 06/29/24 00:03 Saline 0.9% IV 50 mls/hr .Q20H [place] Administration Magnesium Oxide 200 mg 06/29/24 09:00 06/29/24 08:24 Magnesium Oxide 400 Mg Tab PO 200 mg DAILY [place] Administration Naloxone HCl 0.2 mg 06/28/24 19:36 Naloxone 0.4 Mg/Ml 1 Ml Vial IV Q2M PRN Opioid Reversal Intake and Output 06/28/24 06/29/24 06/29/24 22:59 06:59 14:59 Intake Total 52.264 81.347 Balance 52.264 81.347 Intake: Intake, IV Titration 52.264 81.347 Amount Heparin Sod,Pork in 0.45% 52.264 81.347 NaCl 25,000 unit In 0.45 % NaCl 1 250ml.bag @ 12 UNITS/KG/HR 9.417 mls/hr IV .Q24H [facility] Rx#: [id number] Other: Voiding Method Toilet Toilet Toilet # Voids 1 1 3 Weight 78.471 kg 89 kg 06/28/24 11:21 06/28/24 11:21
[2024-06-29] MEDS: ASPIRIN 81 MG PO SCH (13:32)
[2024-06-29] MEDS: DIPHENOX-ATROP 2.5-0.025 MG 1 EACH TAB PO PRN (14:10)
--- NOTE | 2024-06-29 14:23 | US ---
EXAMINATION TYPE: US venous doppler duplex LE BI DATE OF EXAM: 06/29/2024 1:13 PM COMPARISON: NONE CLINICAL INDICATION: Female, 78 years DVT; Patient is on heparin. SIDE PERFORMED: Bilateral TECHNIQUE: The lower extremity deep venous system is examined utilizing real time linear array sonog candis with graded compression, doppler sonography and color-flow sonography. VESSELS IMAGED: Common Femoral Vein Deep Femoral Vein Greater Saphenous Vein * Femoral Vein Popliteal Vein Small Saphenous Vein * Proximal Calf Veins (* superficial vessels) Right Leg: No evidence of DVT. Left Leg: No evidence of DVT. IMPRESSION:
--- NOTE | 2024-06-29 18:00 | CT ---
EXAMINATION TYPE: CT angio chest DATE OF EXAM: 06/29/2024 COMPARISON: PET/CT 06/25/2024 HISTORY: 78-year-old female SOB assess for pulmonary embolus TECHNIQUE: Contiguous axial scanning of the chest after the administration of 70cc mL of Isovue 370. Coronal/sagittal MIP reconstructions performed. CT DLP: 381.5mGycm. Automatic exposure control utilized for a dose reduction. FINDINGS: The heart is upper limits of normal in size without pericardial effusion or flattening of the interve ntricular septum or reflux of contrast into the hepatic veins. Aorta normal caliber with mild atherosclerotic arch calcifications and conventional arch vessel branc peggy anatomy. Scattered small mediastinal lymph nodes are unchanged. No thoracic lymphadenopathy by CT size. Satisfactory opacification of the pulmonary arterial system without evidence for pulmonary embolus. Trace bilateral pleural effusions. Minimal biapical pleural-parenchymal scarring. Patchy bibasilar op acities, likely atelectasis. Visualized upper abdomen shows collapsed gallbladder. Mild degenerative disc disease in the lower thoracic spine. IMPRESSION: 1. Trace bilateral pleural effusions and borderline heart size. Consider early fluid overload state. 2. Prominent patchy bibasilar opacities, likely a cyst. 3. No evidence for pulmonary embolus.
--- NOTE | 2024-06-29 19:07 | CA ---
Transthoracic Echo Report Name: Hilda Abdalla Age: 78 Gender: F : 1945 Exam Date: 06/29/2024 14:39 Exam Location: [place] [facility] Ht (in): 66 Wt (lb): 196 Ordering Physician: Dylan Egan MD Attending/Referring Phys: Pediatric Psychiatrist Kitty Obrien RDCS Procedure CPT: Indications: lvfunction Cardiac Hx: Technical Quality: Good Contrast 1: Total Dose (mL): Contrast 2: Total Dose (mL): MEASUREMENTS (Male / Female) Normal Values 2D ECHO LV Diastolic Diameter PLAX 4.4 cm 4.2 - 5.9 / 3.9 - 5.3 cm LV Systolic Diameter PLAX 2.8 cm IVS Diastolic Thickness 0.9 cm 0.6 - 1.0 / 0.6 - 0.9 cm LVPW Diastolic Thickness 0.9 cm 0.6 - 1.0 / 0.6 - 0.9 cm LV Relative Wall Thickness 0.4 RV Internal Dim ED PLAX 3.5 cm LA Systolic Diameter LX 3.2 cm 3.0 - 4.0 / 2.7 - 3.8 cm LV Diastolic Volume MOD 4C 67.3 cm??? LV Systolic Volume MOD 4C 27.8 cm??? LV Ejection Fraction MOD 4C 58.7 % LV Cardiac Index MOD 4C 1548.3 cm???/min???m??? LV Diastolic Length 4C 7.7 cm LV Systolic Length 4C 6.0 cm LV Diastolic Volume MOD 2C 95.7 cm??? LV Systolic Volume MOD 2C 34.9 cm??? LV Ejection Fraction MOD 2C 63.5 % LV Cardiac Index MOD 2C 2383.9 cm???/min???m??? LV Diastolic Length 2C 8.3 cm LV Systolic Length 2C 6.2 cm LA Volume 46.3 cm??? 18 - 58 / 22 - 52 cm??? LA Volume Index 22.4 cm???/m??? 16 - 28 cm???/m??? M-MODE Aortic Root Diameter MM 3.2 cm DOPPLER AV Peak Velocity 137.5 cm/s AV Peak Gradient 7.6 mmHg MV Area PHT 3.3 cm??? Mitral E Point Velocity 95.5 cm/s Mitral A Point Velocity 106.8 cm/s Mitral E to A Ratio 0.9 MV Deceleration Time 232.3 ms TR Peak Velocity 354.5 cm/s TR Peak Gradient 50.3 mmHg Right Ventricular Systolic Press 54.6 mmHg FINDINGS Left Ventricle Left ventricular ejection fraction is estimated at 60-65 %. Left ventricular cavity size normal. Left ventricular wall thickness normal. Normal left ventricular wall motion. Right Ventricle Mild right ventricular dilatation. Severe pulmonary hypertension. Right ventricular systolic pressure estimated at 55 mm hg. Right Atrium Severe right atrial dilatation. . No right atrial thrombus or mass seen. Left Atrium Normal left atrial size. No left atrial thrombus or mass present. Mitral Valve Structurally normal mitral valve. No mitral stenosis, regurgitation or prolapse. Aortic Valve Trileaflet aortic valve. No aortic valve stenosis or regurgitation. Tricuspid Valve Structurally normal tricuspid valve. Moderate tricuspid regurgitation. Pulmonic Valve Structurally normal pulmonic valve. Trace pulmonic regurgitation. Pericardium No pericardial effusion. No pleural effusion. Aorta Normal size aortic root and proximal ascending aorta. CONCLUSIONS Diagnosis shortness of breath, lower extremity edema Preserved LV size and function Dilated right ventricle, severely enlarged right atrium, at least moderate tricuspid regurgitation Severe pulmonary hypertension greater than 55 mmHg Previewed by: Dr. Juan Saldaña MD (Electronically Signed) Final Date: 29 June 2024 19:06
[2024-06-29] MEDS: Acetaminophen-Codeine 300-30mg TAB PO PRN (20:40)
[2024-06-29] MEDS: ATORVASTATIN 40 MG TAB PO SCH (20:41)
[2024-06-29] MEDS: AMITRIPTYLINE HCL 25 MG TAB PO SCH (20:41)
[2024-06-29] MEDS: ALPRAZolam 0.25 MG TAB PO PRN (20:41)
--- NOTE | 2024-06-29 22:25 | P.CONS ---
History of Present Illness - Reason for Consult Consult date: 06/29/24 Fever Requesting physician: Dylan Egan - Chief Complaint Fever x 1 day - History of Present Illness Patient is a 78-year-old female with a past medical history si gnificant for atrial flutter atrial fibrillation rheumatoid arthritis and history of colon cancer patient was brought into the hospital for evaluation of fever x 1 day apparently patient symptom started over the weekend and prior to that the patient mention she has been working hard in her yard for about a day and a half patient was noticed to have a fever at home of 103 F for the patient was given Tylenol subsequently still having a fever for the patient was brought to the hospital patient was complaining of generalized bodyaches did have some headache but had no URI symptoms patient has been complaining of bilateral lower rib cage chest pain mild to moderate rest without radiation patient denies having any significant cough or sputum production denies any abdominal pain no nausea no vomiting or any diarrhea with this and with the patient has been evaluated on presentation to the hospital patient did have a temperature of 102 F patient was not tachycardic or hypotensive she was hypoxic with O2 sats of 90% on room air did require nasal cannula oxygen initially subsequently not requ iring any further nasal cannula oxygen patient did have a white count of 9.8 with a left shift creatinine is normal electrolytes are normal liver isms mildly elevated urine has been negative influenza RSV COVID testing was negative patient did have a chest x-ray low lung volumes with generalized hazy appearance could represent atelectasis versus pulmonary edema patient did receive a dose of Rocephin in the ER did have elevated troponin for the patient was started on heparin infectious he was consulted for further management of antibiotic therapy patient has been eval by cardiology CT angiogram of the chest has been ordered pending completion Review of Systems Positive point and negatives has been mentioned in the HPI, complete review of systems was performed and all other systems are negative Past Medical History Past Medical History: Atrial Fibrillation, Atrial Flutter, Cancer, Rheumatoid Arthritis (RA) Additional Past Medical History / Comment(s): colon cancer, skin cancer, History of Any Multi-Drug Resistant Organisms: None Reported Past Surgical History: Appendectomy, Hysterectomy Additional Past Surgical History / Comment(s): partial thyroidectomy, malignant tumor removed from colo, fibroid tumors removed from breast, skin biopsy, hemmroids removed, foot surgery Past Anesthesia/Blood Transfusion Reactions: No Reported Reaction Past Psychological History: No Psychological Hx Reported Smoking Status: Former smoker Past Alcohol Use History: None Reported Past Drug Use History: None Reported Medications and Allergies Home Medications Medication Instructions Recorded Confirmed Type atenoloL [Tenormin] 25 mg PO DAILY 08/31/15 06/28/24 History ALPRAZolam [Xanax] 0.25 mg PO DAILY 01/06/16 06/28/24 History Gabapentin [Neurontin] 800 mg PO TID 07/17/22 06/28/24 History Hydroxychloroquine Sulfate 200 mg PO BID 07/17/22 06/28/24 History [Plaquenil] Acetaminophen Tab [Tylenol] 650 mg PO Q6H PRN 06/28/24 06/28/24 History Acetaminophen-Codeine 300-30mg 1 tab PO Q12H PRN 06/28/24 06/28/24 History [Tylenol w/codeine #3] Amitriptyline HCl [Elavil] 50 mg PO HS 06/28/24 06/28/24 History Citalopram Hydrobromide [CeleXA] 10 mg PO DAILY 06/28/24 06/28/24 History Diphenoxylate HCl/Atropine 1 tab PO QID PRN 06/28/24 06/28/24 History [Lomotil 2.5-0.025 mg Tablet] Doxycycline [Vibramycin] 100 mg PO BID 06/28/24 06/28/24 History Magnesium 250 mg PO DAILY 06/28/24 06/28/24 History Rosuvastatin Calcium [Crestor] 5 mg PO MYERS 06/28/24 06/28/24 History estradioL [Estrace] 0.5 mg PO DIRECTED 06/28/24 06/28/24 History Allergies Allergy/AdvReac Type Severity Reaction Status Date / Time Penicillins Allergy Rash/Hives Verified 06/28/24 11:55 Physical Exam Vitals: Vital Signs Temp Pulse Pulse Resp BP BP BP 06/29/24 08:00 98.5 F 81 18 06/29/24 04:00 65 18 06/29/24 02:00 79 18 06/29/24 00:00 79 18 06/28/24 21:40 98.4 F 79 20 96/58 88/53 06/28/24 21:35 98.5 F 72 20 95/55 06/28/24 20:30 73 22 90/55 06/28/24 20:00 73 9 L 94/53 06/28/24 19:30 14 85/46 06/28/24 19:00 74 12 84/53 06/28/24 18:37 97.8 F 76 15 84/53 06/28/24 18:35 76 59 H 06/28/24 14:55 98.2 F 76 18 76/42 06/28/24 13:11 98.3 F 77 18 73/54 BP BP Pulse Ox 06/29/24 08:00 95/64 94 L 06/29/24 04:00 96/60 93 L 06/29/24 02:00 06/29/24 00:00 97/59 94 L 06/28/24 21:40 102/61 102/61 96 06/28/24 21:35 100 06/28/24 20:30 94 L 06/28/24 20:00 96 06/28/24 19:30 89 L 06/28/24 19:00 96 06/28/24 18:37 94 L 06/28/24 18:35 95 06/28/24 14:55 06/28/24 13:11 95 Intake and Output 06/28/24 06/29/24 06/29/24 22:59 06:59 14:59 Intake Total 52.264 81.347 Balance 52.264 81.347 Intake: Intake, IV Titration 52.264 81.347 Amount Heparin Sod,Pork in 0.45% 52.264 81.347 NaCl 25,000 unit In 0.45 % NaCl 1 250ml.bag @ 12 UNITS/KG/HR 9.417 mls/hr IV .Q24H [facility] Rx#: [id number] Other: Voiding Method Toilet Toilet Toilet # Voids 1 1 3 Weight 78.471 kg 89 kg GENERAL DESCRIPTION: Elderly female lying in bed, no distress. No tachypnea or accessory muscle of respiration use. HEENT: Shows Pallor , no scleral icterus. Oral mucous membrane is dry. No pharyngeal erythema or thrush NECK: Trachea central, no thyromegaly. LUNGS: Unlabored breathing. Decreased breath sound the base no wheeze or crackle. HEART: S1, S2, regular rate and rhythm. No loud murmur ABDOMEN: Soft, no tenderness , guarding or rigidity, no organomegaly EXTREMITIES: No edema of feet. SKIN: No rash, no masses palpable. NEUROLOGICAL: The patient is awake, alert, oriented x3, mood and affect normal. Results CBC & Chem 7: 06/28/24 11:21 06/28/24 11:21 Labs: Abnormal Lab Results - Last 24 Hours (Table) 06/28/24 06/28/24 06/28/24 Range/Units 11:21 11:21 11:21 Neutrophils # 9.0 H (1.3-7.7) k/uL Lymphocytes # 0.2 L (1.0-4.8) k/uL APTT (22.0-30.0) sec BUN 18 H (7-17) mg/dL AST 65 H (14-36) U/L ALT 51 H (4-34) U/L Troponin I (0.000-0.034) ng/mL C-Reactive Protein (<1.0) mg/dL Total Protein 6.1 L (6.3-8.2) g/dL Urine Protein 1+ H (Negative) Urine Bacteria Rare H (None) /hpf Urine Mucus Occasional H (None) /hpf 06/28/24 06/28/24 06/28/24 Range/Units 14:10 20:56 22:14 Neutrophils # (1.3-7.7) k/uL Lymphocytes # (1.0-4.8) k/uL APTT 83.0 H (22.0-30.0) sec BUN (7-17) mg/dL AST (14-36) U/L ALT (4-34) U/L Troponin I 1.360 H* 0.534 H* (0.000-0.034) ng/mL C-Reactive Protein (<1.0) mg/dL Total Protein (6.3-8.2) g/dL Urine Protein (Negative) Urine Bacteria (None) /hpf Urine Mucus (None) /hpf 06/28/24 06/29/24 06/29/24 Range/Units 23:58 06:52 06:52 Neutrophils # (1.3-7.7) k/uL Lymphocytes # (1.0-4.8) k/uL APTT 41.9 H (22.0-30.0) sec BUN (7-17) mg/dL AST (14-36) U/L ALT (4-34) U/L Troponin I 0.394 H* (0.000-0.034) ng/mL C-Reactive Protein 12.9 H (<1.0) mg/dL Total Protein (6.3-8.2) g/dL Urine Protein (Negative) Urine Bacteria (None) /hpf Urine Mucus (None) /hpf Assessment and Plan (1) Fever Current Visit: Yes Status: Acute Code(s): R50.9 - FEVER, UNSPECIFIED SNOMED Code(s): 408762579 (2) Pneumonia Current Visit: Yes Status: Acute Code(s): J18.9 - PNEUMONIA, UNSPECIFIED ORGANISM SNOMED Code(s): 858074899 (3) Penicillin allergy Current Visit: Yes Status: Acute Code(s): Z88.0 - ALLERGY STATUS TO PENICILLIN SNOMED Code(s): 03232079 Plan: 1patient presented hospital with a fever patient is also complaining of bilateral lower rib cage pain did have some abnormal x-ray with a question of atelectasis versus pneumonia patient abdominal soft rectal examination no evidence of any cellulitis urine has been negative 2we will wait for the CT angiogram of the chest to complete to better define abnormality at the lung bases. 3we will try to obtain a sputum for other culture check a CRP and procalcitonin 4we will empirically add Rocephin 2 g daily pending workup completion Daughter at the bedside multiple questions were answered We will follow on clinical condition and cultures to further adjust medication if needed Thank you for this consultation we will follow the patient along with you Dictation was produced using [employer] dictation software. please excuse any gramm atical, word or spelling errors. Time with Patient: Greater than 30
[2024-06-30] MEDS: SODIUM CHLORIDE 0.9% 1,000 ML in EMPTY BAG 1 BAG IV SCH (03:23)
--- NOTE | 2024-06-30 05:35 | P.HPIM ---
History of Present Illness H&P Date: 06/29/24 HISTORY OF PRESENT ILLNESS: 78-year-old office patient with active medical history of rheumatoid arthritis, colon cancer, hypothyroidism, hypertension, chronic neuropathy, mild depression, hyperlipidemia and chronic anemia who presented to the emergency department at [facility] today 06/28/2024 complaining of fever and chills for the last 24 hours she was working outside yesterday when she started feeling slightly better heartburn body ache she had apparently skin biopsy over a week ago from the right lower leg and left upper arm area, slightly with irritated but no sign of infection drainage or pus. Patient becomes slightly with out of breath with exertion denies any congestion or cough. According family patient apparently had fever and chills and infected skin biopsy in the past which required antibiotics for. Despite denies any pain redness or any irritation or induration around the biopsy site at this time. Also patient declined any previous history of congestive heart failure or coronary artery disease he presented to the emergency department with the above problem was seen and evaluated Found to have white blood cell of 9800 with normal shift slightly with abnormal liver function test with normal kidney function, UA was negative, influenza AB RSV COVID and group A strep all came back negative. proBNP was 5950 with slightly elevated and surprisingly patient had an elevated troponin at 1.360 without significant unimpressive complaint of chest pain or angina. Her EKG shows slight T inversion in the anterolateral leads with atypical ST elevation at lead II and III. Patient apparently was diagnosed with non-ST ID and chest x-ray shows slight haziness of the lower lobes bilaterally worse on the left side than the right side with slight fluid overload along with slight sign and symptom of acute bronchitis as well. Will admit patient to the hospital for non-ST ID along with fever and chills most likely early pneumonia will initiate patient on Rocephin and azithromycin along with updraft treatment and oxygen on demand. REVIEW OF SYSTEMS: CONSTITUTIONAL: Well-developed no acute respiratory distress. EYES: No icterus sclerae, no conjunctivitis. EARS, NOSE, MOUTH, THROAT, and FACE: No sore throat, lymphadenopathy, carotid bruits or deformity. Mild carotid patient. RESPIRATORY: Slight shortness of breath mild cough and wheezes. CARDIOVASCULAR: No CP, Palpitation, PND, Orthopnea, or angina. GASTROINTESTINAL: No Abd pain, Nausea or vomiting, no Diarrhea or constipation, No GI Bleed, no distention or masses. GENITOURINARY: Negative for Hematuria or UTI, no kidney stones. INTEGUMENT/BREAST: Negative for any muscular injury with mild osteoarthritis.. HEMATOLOGIC/LYMPHATIC: Negative for bleed or purpura. MUSCULOSKELTAL: Negative for Myalgia or arthralgia. NEURLOGICAL: No LOC, Sz or syncope, blurred vision dizziness or abnormality.. BEHAVIORAL/PSYCH: Negative. ENDOCRINE: Negative. PHYSICAL EXAMINATION: General Appearance: Alert, cooperative, no distress, appears stated age. Neck HEENT: Supple, no lymphadenopathy, no thyroid enlargement, no carotid bruits. No sign of fluid pulm enlargement Lungs: Decreased breath sound bilaterally with fine rhonchi positive mild expiratory wheezes with rhonchi no crackles. Chest Wall: Chest wall normal expansion with deep inspiration no tenderness and no deformity was found on exam, no costochondral pain or discomfort. Heart: Regular rate and rhythm, S1, S2 normal, no murmur, rub or gallop. Back: Symmetric, no curvature, ROM normal, no CVA tenderness. Abdomen: Soft, non-tender, bowel sounds active all four quadrants, no masses, no organomegaly. Extremities: Extremities normal, atraumatic, no cyanosis or edema. With 2 cycles of biopsy with upper and lower extremity does not show any sign of infection. Pulses: 2+ and symmetric. Skin: Skin color, texture, tugor normal, no rashes or lesions. Neurologic: Alert oriented x3 cranial nerves II through XII intact, no motor deficit, no abnormal balance or gait. ASSESSMENT AND PLAN: _Possible non-ST ID: With no previous history of medical infarction or cardiac disease, admit patient to the hospital continue CK troponin times 3 repeat proBNP tomorrow, consult cardiology, order echocardiogram based on results of testing further arrangement or testing might be needed. _Fever and chills with early signs of pneumonia and severe bronchitis: Was started on Rocephin and azithromycin will continue current medication m anagement. _History of rheumatoid arthritis: Has been on hydrochloric when 200 mg twice a day she is not on any steroid at this point. _History of colon cancer: Still seen oncology regularly. _Hypertension: Remain on atenolol 25 mg a day will add smaller dose of ARB if needed. _Hyperlipidemia: Continue rosuvastatin 5 mg a day with target for LDL below 70. _Chronic neuropathy: Has been on gabapentin and amitriptyline. _Chronic diarrhea: With short-bowel syndrome: Has been on Lomotil on demand. _Chronic depression will continue Celexa 10 mg a day and still on amitriptyline 50 mg nightly along with alprazolam 25 mg daily. _GI prophylaxis: She will be on Pepcid 20 mg daily. _DVT prophylaxis: She was started on heparin drip till she is seen and cleared by cardiology CODE STATUS: Full code. Admit patient to the inpatient service for more than 2 night stay. Past Medical History Past Medical History: Atrial Fibrillation, Atrial Flutter, Cancer, Rheumatoid Arthritis (RA) Additional Past Medical History / Comment(s): colon cancer, skin cancer, History of Any Multi-Drug Resistant Organisms: None Reported Past Surgical History: Appendectomy, Hysterectomy Additional Past Surgical History / Comment(s): partial thyroidectomy, malignant tumor removed from colo, fibroid tumors removed from breast, skin biopsy, hemmroids removed, foot surgery Past Anesthesia/Blood Transfusion Reactions: No Reported Reaction Past Psychological History: No Psychological Hx Reported Smoking Status: Former smoker Past Alcohol Use History: None Reported Past Drug Use History: None Reported Medications and Allergies Home Medications Medication Instructions Recorded Confirmed Type atenoloL [Tenormin] 25 mg PO DAILY 08/31/15 06/28/24 History ALPRAZolam [Xanax] 0.25 mg PO DAILY 01/06/16 06/28/24 History Gabapentin [Neurontin] 800 mg PO TID 07/17/22 06/28/24 History Hydroxychloroquine Sulfate 200 mg PO BID 07/17/22 06/28/24 History [Plaquenil] Acetaminophen Tab [Tylenol] 650 mg PO Q6H PRN 06/28/24 06/28/24 History Acetaminophen-Codeine 300-30mg 1 tab PO Q12H PRN 06/28/24 06/28/24 History [Tylenol w/codeine #3] Amitriptyline HCl [Elavil] 50 mg PO HS 06/28/24 06/28/24 History Citalopram Hydrobromide [CeleXA] 10 mg PO DAILY 06/28/24 06/28/24 History Diphenoxylate HCl/Atropine 1 tab PO QID PRN 06/28/24 06/28/24 History [Lomotil 2.5-0.025 mg Tablet] Doxycycline [Vibramycin] 100 mg PO BID 06/28/24 06/28/24 History Magnesium 250 mg PO DAILY 06/28/24 06/28/24 History Rosuvastatin Calcium [Crestor] 5 mg PO MYERS 06/28/24 06/28/24 History estradioL [Estrace] 0.5 mg PO DIRECTED 06/28/24 06/28/24 History Allergies Allergy/AdvReac Type Severity Reaction Status Date / Time Penicillins Allergy Rash/Hives Verified 06/28/24 11:55 Physical Exam Vitals: Vital Signs Temp Pulse Pulse Resp BP BP Pulse Ox 06/28/24 21:40 98.4 F 75 18 102/61 96 06/28/24 21:35 98.5 F 72 20 95/55 100 06/28/24 20:30 73 22 90/55 94 L 06/28/24 20:00 73 9 L 94/53 96 06/28/24 19:30 14 85/46 89 L 06/28/24 19:00 74 12 84/53 96 06/28/24 18:37 97.8 F 76 15 84/53 94 L 06/28/24 18:35 76 59 H 95 06/28/24 14:55 98.2 F 76 18 76/42 06/28/24 13:11 98.3 F 77 18 73/54 95 06/28/24 10:17 102.0 F H 107 H 18 96/61 90 L Intake and Output 06/28/24 06/28/24 06/29/24 14:59 22:59 06:59 Other: # Voids 1 Weight 78.471 kg 78.471 kg Results CBC & Chem 7: 06/28/24 11:21 06/28/24 11:21 Labs: Abnormal Lab Results - Last 24 Hours (Table) 06/28/24 06/28/24 06/28/24 Range/Units 11:21 11:21 11:21 Neutrophils # 9.0 H (1.3-7.7) k/uL Lymphocytes # 0.2 L (1.0-4.8) k/uL APTT (22.0-30.0) sec BUN 18 H (7-17) mg/dL AST 65 H (14-36) U/L ALT 51 H (4-34) U/L Troponin I (0.000-0.034) ng/mL Total Protein 6.1 L (6.3-8.2) g/dL Urine Protein 1+ H (Negative) Urine Bacteria Rare H (None) /hpf Urine Mucus Occasional H (None) /hpf 06/28/24 06/28/24 06/28/24 Range/Units 14:10 20:56 22:14 Neutrophils # (1.3-7.7) k/uL Lymphocytes # (1.0-4.8) k/uL APTT 83.0 H (22.0-30.0) sec BUN (7-17) mg/dL AST (14-36) U/L ALT (4-34) U/L Troponin I 1.360 H* 0.534 H* (0.000-0.034) ng/mL Total Protein (6.3-8.2) g/dL Urine Protein (Negative) Urine Bacteria (None) /hpf Urine Mucus (None) /hpf Thrombosis Risk Factor Assmnt - Choose All That Apply Any of the Below Risk Factors Present?: Yes Each Factor Represents 1 point: Obesity (BMI >25) Other Risk Factors: Yes Each Risk Factor Represents 3 Points: Age 75 years or older Other congenital or acquired thrombophilia - If yes, enter type in comment: No Thrombosis Risk Factor Assessment Total Risk Factor Score: 4 Thrombosis Risk Factor Assessment Level: Moderate Risk
[2024-06-30] MEDS ORDERED: HEPARIN SODIUM,PORCINE (1 ML) 2,500 UNIT in SODIUM CHLORIDE 0.9% 250 ML IRRIGATION PRN (07:00)
[2024-06-30] MEDS ORDERED: HEPARIN SODIUM,PORCINE 10,000 UNIT in SODIUM CHLORIDE 0.9% 1,000 ML IRRIGATION PRN (07:00)
[2024-06-30 09:08] LABS: HCT 37.6 % (34.0-46.0); HGB 12.2 gm/dL (11.4-16.0); Hypochromasia Slight; MCH 30.1 pg (25.0-35.0); MCHC 32.3 g/dL (31.0-37.0); MCV 93.2 fL (80.0-100.0); Mean Platelet Volume 7.8; Platelet Count 177 k/uL (150-450); RBC 4.04 m/uL (3.80-5.40); RDW 14.5 % (11.5-15.5)
[2024-06-30 09:58] LABS: ALT 125 U/L (4-34); AST 102 U/L (14-36); African American GFR (CKD) >90 (>60 ml/min/1.73 sqM); Albumin 3.4 g/dL (3.5-5.0); Alkaline Phosphatase 236 U/L (38-126); Anion Gap 7 mmol/L; Blood Urea Nitrogen 10 mg/dL (7-17); Calcium 8.7 mg/dL (8.4-10.2); Carbon Dioxide 21 mmol/L (22-30); Chloride 112 mmol/L (98-107); Glucose 91 mg/dL (74-99); Non-African American GFR(CKD) 85 (>60 ml/min/1.73 sqM); Potassium 4.1 mmol/L (3.5-5.1); Sodium 140 mmol/L (137-145); Total Bilirubin 0.6 mg/dL (0.2-1.3); Total Protein 5.8 g/dL (6.3-8.2)
[2024-06-30] MEDS: ASPIRIN 325 MG TAB PO STA (10:12)
[2024-06-30] MEDS: ATORVASTATIN 80 MG TAB PO STA (10:12)
--- NOTE | 2024-06-30 12:32 | P.PN ---
Subjective Progress Note Date: 06/30/24 Principal diagnosis: Reason for follow-up is fever question of pneumonia Patient is a 78-year-old female with a past medical history significant for atrial flutter atrial fibrillation rheumatoid arthritis and history of colon cancer patient was brought into the hospital for evaluation of fever, patient was complaining of some bilateral lower lower rib chest pain did have a CT angiogram of the chest bilateral effusion and patchy bibasilar opacity. On today's evaluation that is 06/30/2024, patient did have resolution of her fever and has been afebrile this morning, patient is breathing comfortably and is currently on room air, patient denies having any significant cough no chest pain shortness of breath, patient denies nausea vomiting or diarrhea and no abdominal pain. Did mention lower rib cage chest pain has improved. Patient white count is 4.0, creatinine 0.69 CRP was 12.9 Pro-Celestine 0.44 blood cultures are pending Objective - Vital Signs Vital signs: Vital Signs Temp 98.0 F 06/30/24 04:00 Pulse 94 06/30/24 08:14 Resp 16 06/30/24 08:14 BP 148/88 06/30/24 08:14 Pulse Ox 93 L 06/30/24 08:14 FiO2 Intake & Output 06/29/24 06/30/24 06/30/24 18:59 06:59 18:59 Intake Total 150.719 82.944 Balance 150.719 82.944 Weight 79.2 kg Intake: Intake, IV Titration 150.719 82.944 Amount Heparin Sod,Pork in 0.45% 150.719 82.944 NaCl 25,000 unit In 0.45 % NaCl 1 250ml.bag @ 12 UNITS/KG/HR 9.417 mls/hr IV .Q24H [facility] Rx#: [id number] Other: Voiding Method Toilet Toilet # Voids 3 2 - Exam GENERAL DESCRIPTION: An elderly female lying in bed in no distress RESPIRATORY SYSTEM: Unlabored breathing , decreased breath sounds at bases HEART: S1 S2 regular rate and rhythm , ABDOMEN: Soft , no tenderness EXTREMITIES: No edema feet - Labs CBC & Chem 7: 06/30/24 08:35 06/30/24 08:35 Labs: Abnormal Lab Results - Last 24 Hours (Table) 06/29/24 06/29/24 06/30/24 Range/Units 15:59 23:03 08:35 APTT 40.3 H 95.7 H (22.0-30.0) sec Chloride 112 H (98-107) mmol/L Carbon Dioxide 21 L (22-30) mmol/L AST 102 H (14-36) U/L ALT 125 H (4-34) U/L Alkaline Phosphatase 236 H (38-126) U/L Total Protein 5.8 L (6.3-8.2) g/dL Albumin 3.4 L (3.5-5.0) g/dL 06/30/24 Range/Units 08:35 APTT 50.8 H (22.0-30.0) sec Chloride (98-107) mmol/L Carbon Dioxide (22-30) mmol/L AST (14-36) U/L ALT (4-34) U/L Alkaline Phosphatase (38-126) U/L Total Protein (6.3-8.2) g/dL Albumin (3.5-5.0) g/dL Assessment and Plan (1) Fever Current Visit: Yes Status: Acute Code(s): R50.9 - FEVER, UNSPECIFIED SNOMED Code(s): 306308640 (2) Pneumonia Current Visit: Yes Status: Acute Code(s): J18.9 - PNEUMONIA, UNSPECIFIED ORGANISM SNOMED Code(s): 463016734 (3) Penicillin allergy Current Visit: Yes Status: Acute Code(s): Z88.0 - ALLERGY STATUS TO PENICILLIN SNOMED Code(s): 16640769 Plan: 1patient presented hospital with a fever patient is also complaining of bilateral lower rib cage pain did have some abnormal x-ray with a question of atelectasis versus pneumonia patient abdominal soft rectal examination no evidence of any cellulitis urine has been negative 2patient did have CT angiogram of the chest no PE bilateral effusion and bibasilar atelectasis 3we will try to obtain a sputum for other culture 4continue with Rocephin while waiting for the culture to finalize Dictation was produced using Plated dictation software. please excuse any grammatical, word or spelling errors. Time with Patient: Less than 30
[2024-06-30] MEDS ORDERED: VERAPAMIL 2.5 MG/ML 2 ML AMP ONE (12:57)
[2024-06-30] MEDS ORDERED: LIDOCAINE 1% INJ 10MG/ML (20 ML MDV) ONE (12:58)
[2024-06-30] MEDS ORDERED: fentaNYL (PF) 50 MCG/ML 2 ML AMP ONE (13:00)
[2024-06-30] MEDS ORDERED: HEPARIN SODIUM,PORCINE 30 ML 30 ML ONE (13:00)
[2024-06-30] MEDS: fentaNYL (PF) 50 MCG/1 ML VIAL IVP ONE (13:22)
[2024-06-30] MEDS: MIDAZOLAM 2 MG/2 ML VIAL IVP ONE (13:22)
[2024-06-30] MEDS: LIDOCAINE 1% INJ 10MG/ML (20 ML MDV) SQ ONE (13:22)
[2024-06-30] MEDS: VERAPAMIL 2.5 MG/ML 4 ML VIAL INTRAARTER ONE (13:23)
[2024-06-30] MEDS: HEPARIN SODIUM 1,000 UN/ML (10ML VL) IVP ONE (13:27)
[2024-06-30] MEDS: HEPARIN SODIUM,PORCINE (1 ML) 2,500 UNIT in SODIUM CHLORIDE 0.9% 250 ML IRRIGATION ONE (13:41)
[2024-06-30] MEDS: SODIUM CHLORIDE 0.9% 1,000 ML IV ONE (13:41)
[2024-06-30] MEDS: IOPAMIDOL-370 100ML BTL INTRATHECA ONE (13:41)
[2024-06-30] MEDS: HEPARIN SODIUM,PORCINE 10,000 UNIT in SODIUM CHLORIDE 0.9% 1,000 ML IRRIGATION ONE (13:41)
[2024-06-30] MEDS ORDERED: RX INFO: IV CONTRAST WAS GIVEN 1 EACH MISC MISCELLANE PRN (13:46)
--- NOTE | 2024-06-30 13:51 | P.CARDCATH ---
Date of Procedure: 06/30/24 Description of Procedure: Cardiac Catheterization: The patient is a 78-year-old female with no prior documented history of obstructive CAD who presented with dyspnea and had mild elevation of the troponin. She was diagnosed with non-STEMI and evaluated by Dr. Kaur. Recommendations were made regarding cardiac catheterization, the risks and the complications were discussed with the patient who is in full understanding and agreement. Procedure Description: Patient was brought to lab aid in fasting semi-sedated state after receiving Fentanyl and Benadryl achieiving moderate conscious sedated state. Using Xylocaine Anesthesia and modified Seldinger technique, a 6-Guatemalan sheath was introduced in the right radial artery . Subsequently, selective coronary angiography was performed using a 5-Guatemalan 3.5 bend Martir catheter. Multiple views of the coronary artery including hemiaxial views were obtained. The right Martir catheter was used to cross the aortic valve and LVEDP was calculated. Following that, catheter and sheath were removed. Hemostasis was obtained with deployment of vascular band . There was no immediate complication. Patient was returned to room in stable condition. Of note, the patient received a total of 4000 units of intravenous heparin as well as intra-arterial verapamil. Findings: Left main: This is a large size vessel, bifurcating into LAD and left circumflex, left main has no obstructive disease LAD: This is a large size vessel, reaching to the apex, giving rise to a large diagonal branch, the LAD and its branches have no obstructive disease Left circumflex: This is a large nondominant vessel giving rise to 3 obtuse marginal branch distally that have no obstructive disease RCA: This is a large dominant vessel, bifurcating distally to PDA and PLV the proximal RCA has 20% plaque, the rest of the vessel has no high-grade stenosis. Left Ventriculogram: Not performed Hemodynamics: There was no gradient across the aortic valve, LVEDP was 20 mmHg Conclusion: 1. Mild disease in the RCA 2. No obstructive disease in the left circumflex and LAD 3. Right dominance Recommendations: At this time I will continue medical therapy with the aggressive coronary risks modification initiated, I see no evidence of significant obstructive disease.. The findings and the recommendations were discussed with the patient and the family and they were in full understanding and agreement. Duration of sedation is 10 minutes.
[2024-06-30] MEDS: SPIRONOLACTONE 25 MG TAB PO SCH (15:33)
[2024-06-30] MEDS: SODIUM CHLORIDE 0.9% 1,000 ML IV SCH (16:50)
[2024-06-30 21:44] LABS: Hepatitis A Antibody IgM Nonreactive (Nonreactive); Hepatitis B Surface Antigen Nonreactive (Nonreactive); Hepatitis C IgG Antibody Nonreactive (Nonreactive)
[2024-06-30 22:19] LABS: Hepatitis B Core IgM Nonreactive (Nonreactive)
[2024-07-01 00:08] VITALS: TEMP 97.3
--- NOTE | 2024-07-01 02:40 | P.CNPUL ---
History of Present Illness Consult date: 07/01/24 Requesting physician: Dylan Egan Reason for consult: pulmonary hypertension Chief complaint: Shortness of breath, chest pain, fevers History of present illness: Patient is 78-year-old white female with past medical history significant for Hypertension, hyperlipidemia, atrial fibrillation/flutter, skin cancer receiving immunotherapy infusions, rheumatoid arthritis, former tobacco smoker, and former colon cancer. Patient was actually admitted back on 06/28/2024. She was having episodes of intermittent exertional shortness of breath, associated chest pressure, and fever. No significant coughing. Denies sick contacts. Endorses myalgias and generalized fatigue. She did recently have some skin biopsies. Prophylactically given a course of doxycycline afterward. Her oncologist if Dr. James. On arrival, patient did have some elevated troponins including 1.36, 0.534, and 0.394 respectively. She was taken for a left-sided heart catheterization yesterday which showed mild non-obstructive RCA disease. LVEDP was 20 mmHg. She does take estrogen, and there was concern for VTE. Chest [facility] w [facility] was negative for pulmonary embolus. Heart size was borderline enlarged, trace bilateral pleural effusions, and minimal atelectasis. No focal infiltrates or pneumonia. Transthoracic echocardiogram done this admission estimates a left ventricular ejection fraction of 60 to 65%, with a normal left ventricular cavity size. There was elevated RVSP of 55 mmHg with a dilated right ventricle, severely enlarged right atrium, and at least moderate tricuspid regurgitation. We were consulted for pulmonary hypertension. Patient denies any pre-existing diagnosed lung disease. She is a previous smoker, quit smoking at the age of 44, prior to this was a 1 pack/day smoker for approximately 25 years. No history of LONNIE. Denies stimulant use. Does have history positive for RA, not on treatment currently. She was receiving immunotherapy infusions for her skin cancer, last infusion was 6 weeks ago. Unsure of name. Most recent labs noted. CBC unremarkable. No leukocytosis. BMP also unremarkable. LFTs mildly elevated. Hepatitis panel unremarkable. NT proBNP was elevated at 5950. ECG shows normal sinus rhythm without obvious acute ischemic changes. Procalcitonin 0.44. Viral panel negative for influenza, RSV, COVID. Infectious diseases guiding antibiotic coverage, but no obvious source of infection has been yet identified. Blood cultures are pending. Currently, resting comfortably on room air. SpO2 is 99%. Afebrile at the moment; although, did have a fever with a Tmax of 102 F on arrival.. Vital signs are stable. Review of Systems REVIEW OF SYSTEMS: CONSTITUTIONAL: Denies any recent significant weight loss or weight gain. Admits generalized fatigue and myalgias. Endorses intermittent fevers. EYES: Denies change in vision. EARS, NOSE, MOUTH, THROAT: Denies headaches, denies sore throat. CARDIOVASCULAR: Denies chest pain, palpitations or syncopal episodes. Reports occasional ankle edema. RESPIRATORY: Admits exertional shortness of breath. No coughing, chest congestion, sputum production. GASTROINTESTINAL: Denies change in appetite, abdominal pain, nausea and vomiting, or diarrhea GENITOURINARY: Denies hematuria, denies infections. MUSKULOSKELETAL: Denies pain, denies swelling. INTEGUMENTARY: Denies rash, denies eczema. NEUROLOGICAL: Denies recent memory loss, no recent seizure activity. PSYCHIATRIC: Denies anxiety, denies depression. HEMATOLOGIC/LYMPHATIC: Denies anemia, denies enlarged lymph node Past Medical History Past Medical History: Atrial Fibrillation, Atrial Flutter, Cancer, Rheumatoid Arthritis (RA) Additional Past Medical History / Comment(s): colon cancer, skin cancer, History of Any Multi-Drug Resistant Organisms: None Reported Past Surgical History: Appendectomy, Hysterectomy Additional Past Surgical History / Comment(s): partial thyroidectomy, malignant tumor removed from colo, fibroid tumors removed from breast, skin biopsy, hemmroids removed, foot surgery Past Anesthesia/Blood Transfusion Reactions: No Reported Reaction Past Psychological History: No Psychological Hx Reported Smoking Status: Former smoker Past Alcohol Use History: None Reported Past Drug Use History: None Reported Medications and Allergies Home Medications Medication Instructions Recorded Confirmed Type atenoloL [Tenormin] 25 mg PO DAILY 08/31/15 06/28/24 History ALPRAZolam [Xanax] 0.25 mg PO DAILY 01/06/16 06/28/24 History Gabapentin [Neurontin] 800 mg PO TID 07/17/22 06/28/24 History Hydroxychloroquine Sulfate 200 mg PO BID 07/17/22 06/28/24 History [Plaquenil] Acetaminophen Tab [Tylenol] 650 mg PO Q6H PRN 06/28/24 06/28/24 History Acetaminophen-Codeine 300-30mg 1 tab PO Q12H PRN 06/28/24 06/28/24 History [Tylenol w/codeine #3] Amitriptyline HCl [Elavil] 50 mg PO HS 06/28/24 06/28/24 History Citalopram Hydrobromide [CeleXA] 10 mg PO DAILY 06/28/24 06/28/24 History Diphenoxylate HCl/Atropine 1 tab PO QID PRN 06/28/24 06/28/24 History [Lomotil 2.5-0.025 mg Tablet] Doxycycline [Vibramycin] 100 mg PO BID 06/28/24 06/28/24 History Magnesium 250 mg PO DAILY 06/28/24 06/28/24 History Rosuvastatin Calcium [Crestor] 5 mg PO MYERS 06/28/24 06/28/24 History estradioL [Estrace] 0.5 mg PO DIRECTED 06/28/24 06/28/24 History Allergies Allergy/AdvReac Type Severity Reaction Status Date / Time Penicillins Allergy Rash/Hives Verified 06/28/24 11:55 Physical Exam Vitals: Vital Signs Temp Pulse Pulse Resp BP BP BP 07/01/24 00:00 97.3 F L 68 16 116/58 06/30/24 20:00 97.6 F 73 16 127/83 06/30/24 17:31 74 16 110/54 06/30/24 16:47 73 17 104/67 06/30/24 16:15 74 17 99/52 06/30/24 15:56 72 16 102/54 06/30/24 15:31 67 16 97/58 06/30/24 15:01 72 16 110/64 06/30/24 14:31 73 16 104/67 06/30/24 14:16 75 17 112/65 06/30/24 14:01 70 18 122/67 06/30/24 13:46 69 16 117/59 06/30/24 11:56 97.9 F 73 18 06/30/24 08:14 94 16 148/88 06/30/24 04:00 98.0 F 77 16 128/77 06/30/24 02:00 70 18 BP Pulse Ox 07/01/24 00:00 99 06/30/24 20:00 99 06/30/24 17:31 96 06/30/24 16:47 97 06/30/24 16:15 97 06/30/24 15:56 98 06/30/24 15:31 97 06/30/24 15:01 94 L 06/30/24 14:31 93 L 06/30/24 14:16 96 06/30/24 14:01 95 06/30/24 13:46 94 L 06/30/24 11:56 115/70 93 L 06/30/24 08:14 93 L 06/30/24 04:00 94 L 06/30/24 02:00 Intake and Output 06/30/24 06/30/24 07/01/24 14:59 22:59 06:59 Intake Total 200 118 Balance 200 118 Intake: IV 200 Oral 118 Other: Voiding Method Toilet Toilet # Voids 2 2 GENERAL EXAM: Alert, 78-year-old white female, lying in bed, comfortable in no apparent distress. HEAD: Normocephalic and atraumatic EYES: Normal reaction of pupils, equal size. NOSE: Clear with pink turbinates. THROAT: No erythema or exudates. NECK: No masses, no JVD. CHEST: No chest wall deformity. LUNGS: Equal air entry with no crackles, wheeze, rhonchi or dullness. On room air. No conversational dyspnea or accessory muscle use while at rest CVS: S1 and S2 normal with no audible murmur, regular rhythm. No extra heart sounds ABDOMEN: No hepatosplenomegaly, active bowel sounds, no guarding or rigidity. SPINE: No scoliosis or deformity SKIN: No rashes CENTRAL NERVOUS SYSTEM: No focal deficits, tone is normal in all 4 extremities. EXTREMITIES: There is no peripheral edema, clubbing, or cyanosis. Peripheral pulses are intact. Results - Laboratory Findings CBC and BMP: 06/30/24 08:35 06/30/24 08:35 Abnormal lab findings: Abnormal Labs 06/28/24 06/28/24 06/28/24 11:21 11:21 11:21 Neutrophils # 9.0 H Lymphocytes # 0.2 L APTT Chloride Carbon Dioxide BUN 18 H AST 65 H ALT 51 H Alkaline Phosphatase Troponin I C-Reactive Protein Total Protein 6.1 L Albumin Urine Protein 1+ H Urine Bacteria Rare H Urine Mucus Occasional H 06/28/24 06/28/24 06/28/24 14:10 20:56 22:14 Neutrophils # Lymphocytes # APTT 83.0 H Chloride Carbon Dioxide BUN AST ALT Alkaline Phosphatase Troponin I 1.360 H* 0.534 H* C-Reactive Protein Total Protein Albumin Urine Protein Urine Bacteria Urine Mucus 06/28/24 06/29/24 06/29/24 23:58 06:52 06:52 Neutrophils # Lymphocytes # APTT 41.9 H Chloride Carbon Dioxide BUN AST ALT Alkaline Phosphatase Troponin I 0.394 H* C-Reactive Protein 12.9 H Total Protein Albumin Urine Protein Urine Bacteria Urine Mucus 06/29/24 06/29/24 06/30/24 15:59 23:03 08:35 Neutrophils # Lymphocytes # APTT 40.3 H 95.7 H Chloride 112 H Carbon Dioxide 21 L BUN AST 102 H ALT 125 H Alkaline Phosphatase 236 H Troponin I C-Reactive Protein Total Protein 5.8 L Albumin 3.4 L Urine Protein Urine Bacteria Urine Mucus 06/30/24 08:35 Neutrophils # Lymphocytes # APTT 50.8 H Chloride Carbon Dioxide BUN AST ALT Alkaline Phosphatase Troponin I C-Reactive Protein Total Protein Albumin Urine Protein Urine Bacteria Urine Mucus - Diagnostic Findings Chest x-ray: image reviewed CT scan - chest: image reviewed Assessment and Plan Assessment: Exertional dyspnea Atypical chest pain Elevated troponins, status post left-sided heart catheterization, findings include mild non-obstructive CAD, involving the RCA. LVEDP was 20 mmHg. Elevated RVSP of greater than 55 mmHg, estimated on TTE, suggestive of severe pulmonary hypertension; with dilated right ventricle, severely enlarged right atrium, and at least moderate TR. Febrile illness, without obvious source of infection yet identified, antibiotics are being directed by ID. Skin cancer, receiving immunotherapy infusions, last infusion was 6 weeks ago History of rheumatoid arthritis, not currently on treatment, secondary to above Mild transaminitis, hepatitis panel negative. Former tobacco smoker, with approximately [id number] history History of hysterectomy History of colon cancer Plan: Patient's medications, labs, imaging reviewed Patient currently on room air. SpO2 99% while at rest TTE findings suggestive of severe pulmonary hypertension and right-sided heart dysfunction Would recommend follow up right-sided heart catheterization for definitive diagnosis Would rule out secondary causes of pulmonary artery hypertension Chest CTA negative for pulmonary embolism. Patient denies known pre-existing lung disease, does have significant smoking history, would recommend outpatient PFT, possible sleep study, vasoreactivity testing, etc. Case will be reviewed with Dr. Morrison later this morning. Patient plans to see a cow tender, Dr. Fitzpatrick, out of [facility] for further workup on discharge. Will follow the patient while inpatient. I have personally seen and examined the patient, performed the documentation and the assessment and plan as written. Number of minutes spent on the visit:20 Time with Patient: Greater than 30
[2024-07-01 05:03] VITALS: RESP 16
--- NOTE | 2024-07-01 05:55 | P.PN ---
Subjective Progress Note Date: 06/30/24 HISTORY OF PRESENT ILLNESS: 78-year-old office patient with active medical history of rheumatoid arthritis, colon cancer, hypothyroidism, hypertension, chronic neuropathy, mild depression, hyperlipidemia and chronic anemia who presented to the emergency department at [facility] today 06/28/2024 complaining of fever and chills for the last 24 hours she was working outside yesterday when she started feeling slightly better heartburn body ache she had apparently skin biopsy over a week ago from the right lower leg and left upper arm area, slightly with irritated but no sign of infection drainage or pus. Patient becomes slightly with out of breath with exertion denies any congestion or cough. According family patient apparently had fever and chills and infected skin biopsy in the past which required antibiotics for. Despite denies any pain redness or any irritation or induration around the biopsy site at this time. Also patient declined any previous history of congestive heart failure or coronary artery disease he presented to the emergency department with the above problem was seen and evaluated Found to have white blood cell of 9800 with normal shift slightly with abnormal liver function test with normal kidney function, UA was negative, inf luenza AB RSV COVID and group A strep all came back negative. proBNP was 5950 with slightly elevated and surprisingly patient had an elevated troponin at 1.360 without significant unimpressive complaint of chest pain or angina. Her EKG shows slight T inversion in the anterolateral leads with atypical ST elevation at lead II and III. Patient apparently was diagnosed with non-ST NJ and chest x-ray shows slight haziness of the lower lobes bilaterally worse on the left side than the right side with slight fluid overload along with slight sign and symptom of acute bronchitis as well. Will admit patient to the hospital for non-ST NJ along with fever and chills most likely early pneumonia will initiate patient on Rocephin and azithromycin along with updraft treatment and oxygen on demand. 06/30/2024: With the elevated troponin patient going for heart cath today after s [facility] cardiology, her current testing with echocardiogram shows good ejection fraction with no wall motion abnormality which showed severe pulmonary hypertension with dilated right ventricle with right ventricular pressure systolic at 55 mmHg with severe right atrial dilatation no thrombus or masses f ound valvular structure showed no mitral regurgitation no aortic abnormality but moderate tricuspid regurgitation only pulmonic valve shows trace pulmonic regurgitation send no real explanation for the severe pulmonary hypertension at this point not a clear whether this is primary pulmonary hypertension or not specially in patients age. Patient not having any fever or chills her final culture is negative and urine has been clear with only abnormality her finding of the significant congestion on her chest x-ray on admission probably early pneumonia and severe bronchitis which agreed at this point to continue treatment for few days after her discharge. Procalcitonin was negative so no further aggressive testing for sepsis need to be done including no need for transesophageal echocardiogram. REVIEW OF SYSTEMS: CONSTITUTIONAL: Well-developed no acute respiratory distress. EYES: No icterus sclerae, no conjunctivitis. EARS, NOSE, MOUTH, THROAT, and FACE: No sore throat, lymphadenopathy, carotid bruits or deformity. Mild carotid patient. RESPIRATORY: Slight shortness of breath mild cough and wheezes. CARDIOVASCULAR: No CP, Palpitation, PND, Orthopnea, or angina. GASTROINTESTINAL: No Abd pain, Nausea or vomiting, no Diarrhea or constipation, No GI Bleed, no distention or masses. GENITOURINARY: Negative for Hematuria or UTI, no kidney stones. INTEGUMENT/BREAST: Negative for any muscular injury with mild osteoarthritis.. HEMATOLOGIC/LYMPHATIC: Negative for bleed or purpura. MUSCULOSKELTAL: Negative for Myalgia or arthralgia. NEURLOGICAL: No LOC, Sz or syncope, blurred vision dizziness or abnormality.. BEHAVIORAL/PSYCH: Negative. ENDOCRINE: Negative. PHYSICAL EXAMINATION: General Appearance: Alert, cooperative, no distress, appears stated age. Neck HEENT: Supple, no lymphadenopathy, no thyroid enlargement, no carotid bruits. No sign of fluid pulm enlargement Lungs: Decreased breath sound bilaterally with fine rhonchi positive mild expiratory wheezes with rhonchi no crackles. Chest Wall: Chest wall normal expansion with deep inspiration no tenderness and no deformity was found on exam, no costochondral pain or discomfort. Heart: Regular rate and rhythm, S1, S2 normal, no murmur, rub or gallop. Back: Symmetric, no curvature, ROM normal, no CVA tenderness. Abdomen: Soft, non-tender, bowel sounds active all four quadrants, no masses, no organomegaly. Extremities: Extremities normal, atraumatic, no cyanosis or edema. With 2 cycles of biopsy with upper and lower extremity does not show any sign of i nfection. Pulses: 2+ and symmetric. Skin: Skin color, texture, tugor normal, no rashes or lesions. Neurologic: Alert oriented x3 cranial nerves II through XII intact, no motor deficit, no abnormal balance or gait. ASSESSMENT AND PLAN: _Possible non-ST NJ: She will be going for heart cath today to exclude any blockage or acute coronary might require intervention. _Severe pulmonary hypertension: Without any major valvular heart disease, will consult pulmonary eventually patient might benefit from going to see pulmonary hypertension clinic in one of the [facility] for consultation. _Fever and chills with early signs of pneumonia and severe bronchitis: Was started on Rocephin and azithromycin will continue current medication management. Procalcitonin is negative no further testing required to be done cultures negative at this point the patient will be continue on treatment management for her early pneumonia and bronchitis and upon discharge probably will continue to treat this as community-acquired pneumonia by probably giving her either on Ceftin or doxycycline for 5-7 more days. _History of rheumatoid arthritis: Has been on hydrochloric when 200 mg twice a day she is not on any steroid at this point. _History of colon cancer: Still seen oncology regularly. _Hypertension: Remain on atenolol 25 mg a day will add smaller dose of ARB if needed. _Hyperlipidemia: Continue rosuvastatin 5 mg a day with target for LDL below 70. _Chronic neuropathy: Has been on gabapentin and amitriptyline. _Chronic diarrhea: With short-bowel syndrome: Has been on Lomotil on demand. _Chronic depression will continue Celexa 10 mg a day and still on amitriptyline 50 mg nightly along with alprazolam 25 mg daily. Discussion: Patient be going for heart cath today completion and further discussion With her and her family she might require to go see somebody at pulmonary hypertension clinic in one of the [facility] with patient be seen pulmonary in [facility] in consultation. Objective - Vital Signs Vital signs: Vital Signs Temp 98.0 F 06/30/24 04:00 Pulse 77 06/30/24 04:00 Resp 16 06/30/24 04:00 BP 128/77 06/30/24 04:00 Pulse Ox 94 L 06/30/24 04:00 FiO2 Intake & Output 06/29/24 06/29/24 06/30/24 06:59 18:59 06:59 Intake Total 52.264 150.719 82.944 Balance 52.264 150.719 82.944 Weight 89 kg Intake: Intake, IV Titration 52.264 150.719 82.944 Amount Heparin Sod,Pork in 0.45% 52.264 150.719 82.944 NaCl 25,000 unit In 0.45 % NaCl 1 250ml.bag @ 12 UNITS/KG/HR 9.417 mls/hr IV .Q24H [facility] Rx#: [id number] Other: Voiding Method Toilet Toilet Toilet # Voids 1 3 - Labs CBC & Chem 7: 06/30/24 08:35 06/30/24 08:35 Labs: Abnormal Lab Results - Last 24 Hours (Table) 06/29/24 06/29/24 06/29/24 Range/Units 06:52 06:52 15:59 APTT 41.9 H 40.3 H (22.0-30.0) sec C-Reactive Protein 12.9 H (<1.0) mg/dL 06/29/24 Range/Units 23:03 APTT 95.7 H (22.0-30.0) sec C-Reactive Protein (<1.0) mg/dL
--- NOTE | 2024-07-01 08:07 | P.DS ---
Providers Date of admission: 06/28/24 19:39 Attending physician: Dylan Egan Consults: 06/28/24 19:36 Consult Physician Urgent Consulting Provider: [facility] Consult Reason/Comments: NSTEMI r/o Do you want consulting provider notified?: Yes 06/29/24 08:24 Consult Physician Routine Consulting Provider: Massiel Lozano Consult Reason/Comments: Fevere Do you want consulting provider notified?: Yes, Notify in am 06/29/24 08:26 Consult Physician Routine Consulting Provider: Christian Kaur Consult Reason/Comments: NADER for possible Endocarditis Do you want consulting provider notified?: Yes, Notify in am 06/30/24 15:11 Consult Physician Routine Consulting Provider: Shani Morrison Consult Reason/Comments: Pulmonary HTN Do you want consulting provider notified?: Yes, Notify in am Primary care physician: [facility] Course: HISTORY OF PRESENT ILLNESS: 78-year-old office patient with active medical history of rheumatoid arthritis, colon cancer, hypothyroidism, hypertension, chronic neuropathy, mild depression, hyperlipidemia and chronic anemia who presented to the emergency department at [facility] today 06/28/2024 complaining of fever and chills for the last 24 hours she was working outside yesterday when she started feeling slightly better heartburn body ache she had apparently skin biopsy over a week ago from the right lower leg and left upper arm area, slightly with irritated but no sign of infection drainage or pus. Patient becomes slightly with out of breath with exertion denies any congestion or cough. According family patient apparently had fever and chills and infected skin biopsy in the past which required antibiotics for. Despite denies any pain redness or any irritation or induration around the biopsy site at this time. Also patient declined any previous history of congestive heart failure or coronary artery disease he presented to the emergency department with the above problem was seen and evaluated Found to have white blood cell of 9800 with normal shift slightly with abnormal liver function test with normal kidney function, UA was negative, influenza AB RSV COVID and group A strep all came back negative. proBNP was 5950 with slightly elevated and surprisingly patient had an elevated troponin at 1.360 without significant unimpressive complaint of chest pain or angina. Her EKG shows slight T inversion in the anterolateral leads with atypical ST elevation at lead II and III. Patient apparently was diagnosed with non-ST MA and chest x-ray shows slight haziness of the lower lobes bilaterally worse on the left side than the right side with slight fluid overload along with slight sign and symptom of acute bronchitis as well. Will admit patient to the hospital for non-ST MA along with fever and chills most likely early pneumonia will initiate patient on Rocephin and azithromycin along with updraft treatment and oxygen on demand. 06/30/2024: With the elevated troponin patient going for heart cath today after seen cardiology, her current testing with echocardiogram shows good ejection fraction with no wall motion abnormality which showed severe pulmonary hypertension with dilated right ventricle with right ventricular pressure systolic at 55 mmHg with severe right atrial dilatation no thrombus or masses found valvular structure showed no mitral regurgitation no aortic abnormality but moderate tricuspid regurgitation only pulmonic valve shows trace pulmonic regurgitation send no real explanation for the severe pulmonary hypertension at this point not a clear whether this is primary pulmonary hypertension or not specially in patients age. Patient not having any fever or chills her final culture is negative and urine has been clear with only abnormality her finding of the significant congestion on her chest x-ray on admission probably early pneumonia and severe bronchitis which agreed at this point to continue treatment for few days after her discharge. Procalcitonin was negative so no further aggressive testing for sepsis need to be done including no need for transesophageal echocardiogram. July 01, 2024: And up coming back to the hospital very late last night to have a meeting with the family explained to them the results of the heart cath and the finding consistent with her pulmonary hypertension addressed all their concerns and explanation for her fever at this time only finding consistent with early pneumonia and severe bronchitis which patient be treated for that accordingly until its clear she can go back to follow-up with her oncologist after discharge there is no sign of infection on the skin lesion and biopsy. She continues to have significant shortness of breath explained to them no finding with testing with anything except her pulmonary hypertension which can explain again shortness of breath apparently they have a family member who works at [employer] when close to cardiothoracic and believes he might have a name for her pulmonary hypertension physician she might be seen after her discharge. Patient will be stabilized and discharged home today 07/01/2024 to follow-up as an outpatient in our office by her oncologist. Addition to her current medical team she will be meeting with pulmonary today just as an information on pulmonary hypertension and for an opinion. REVIEW OF SYSTEMS: CONSTITUTIONAL: Well-developed no acute respiratory distress. EYES: No icterus sclerae, no conjunctivitis. EARS, NOSE, MOUTH, THROAT, and FACE: No sore throat, lymphadenopathy, carotid bruits or deformity. Mild carotid patient. RESPIRATORY: Slight shortness of breath mild cough and wheezes. CARDIOVASCULAR: No CP, Palpitation, PND, Orthopnea, or angina. GASTROINTESTINAL: No Abd pain, Nausea or vomiting, no Diarrhea or constipation, No GI Bleed, no distention or masses. GENITOURINARY: Negative for Hematuria or UTI, no kidney stones. INTEGUMENT/BREAST: Negative for any muscular injury with mild osteoarthritis.. HEMATOLOGIC/LYMPHATIC: Negative for bleed or purpura. MUSCULOSKELTAL: Negative for Myalgia or arthralgia. NEURLOGICAL: No LOC, Sz or syncope, blurred vision dizziness or abnormality.. BEHAVIORAL/PSYCH: Negative. ENDOCRINE: Negative. PHYSICAL EXAMINATION: General Appearance: Alert, cooperative, no distress, appears stated age. Neck HEENT: Supple, no lymphadenopathy, no thyroid enlargement, no carotid bruits. No sign of fluid pulm enlargement Lungs: Decreased breath sound bilaterally with fine rhonchi positive mild expiratory wheezes with rhonchi no crackles. Chest Wall: Chest wall normal expansion with deep inspiration no tenderness and no deformity was found on exam, no costochondral pain or discomfort. Heart: Regular rate and rhythm, S1, S2 normal, no murmur, rub or gallop. Back: Symmetric, no curvature, ROM normal, no CVA tenderness. Abdomen: Soft, non-tender, bowel sounds active all four quadrants, no masses, no organomegaly. Extremities: Extremities normal, atraumatic, no cyanosis or edema. With 2 cycles of biopsy with upper and lower extremity does not show any sign of infection. Pulses: 2+ and symmetric. Skin: Skin color, texture, tugor normal, no rashes or lesions. Neurologic: Alert oriented x3 cranial nerves II through XII intact, no motor deficit, no abnormal balance or gait. ASSESSMENT AND PLAN: _Possible non-ST MA: She will be going for heart cath today to exclude any blockage or acute coronary might require intervention. _Severe pulmonary hypertension: Without any major valvular heart disease, will consult pulmonary eventually patient might benefit from going to see pulmonary hypertension clinic in one of the [facility] for consultation. _Fever and chills with early signs of pneumonia and severe bronchitis: Was started on Rocephin and azithromycin will continue current medication management. Procalcitonin is negative no further testing required to be done cultures negative at this point the patient will be continue on treatment management for her early pneumonia and bronchitis and upon discharge probably will continue to treat this as community-acquired pneumonia by probably giving her either on Ceftin or doxycycline for 5-7 more days. _History of rheumatoid arthritis: Has been on hydrochloric when 200 mg twice a day she is not on any steroid at this point. _History of colon cancer: Still seen oncology regularly. _Hypertension: Remain on atenolol 25 mg a day will add smaller dose of ARB if needed. _Hyperlipidemia: Continue rosuvastatin 5 mg a day with target for LDL below 70. _Chronic neuropathy: Has been on gabapentin and amitriptyline. _Chronic diarrhea: With short-bowel syndrome: Has been on Lomotil on demand. _Chronic depression will continue Celexa 10 mg a day and still on amitriptyline 50 mg nightly along with alprazolam 25 mg daily. Discussion: The patient is very stable and doing well will be discharged home today to follow as an outpatient by her oncologist, in our office and by probably pulmonary hypertension clinic. Hospital course: She was admitted to the hospital on 06/28/2024 via the emergency department [facility] because of fever and chills can explain as a third episode according to her family. The patient seen heme-onc on more regular basis and apparently has been treated for recurrent skin cancer to biopsy or taking a week early none of them shows any signs of infection. She developed to have significant fever and chills of 102 and not feeling well was seen and evaluated at the emergency department with slight abnormal liver function test urine was negative all pulmonary culture was negative as well she had significantly elevated troponin at 1.36 with no real complaint of chest pain but significant shortness of breath also her EKG showed slight change on anterolateral leads with atypical ST elevation and T inversion. She was initiated treatment and management with Rocephin and azithromycin culture was done the patient was hospitalized. Infectious disease and cardiology were consulted patient echocardiogramshowing severe pulmonary hypertension with good ejection fraction and no valvular heart disease. Procalcitonin was negative transesophageal echocardiogram failed to show any vegetation. With elevated troponin patient ended up going to the [facility] and had negative heart catheter with minimally stenosis coronary artery disease did not require any attention or angioplasty. Her final culture came back negative for any infection or sepsis, patient continued to be treated for severe bronchitis and early pneumonia we will switch her to oral cefuroxime when she is discharged and keep her on it for total of 7 days. Continue to have significant shortness of breath: Finding consistent with severe pulmonary hypertension patient eventually will be seen at the pulmonary hypertension clinic for further management and possible for right-sided heart catheter. Patient is very stable to be discharged home today July 01, 2024. Time spent on patient discharge was over 40 minutes. Plan - Discharge Summary Discharge Rx Participant: No New Discharge Prescriptions: New Aspirin 81 mg PO DAILY tab Spironolactone [Aldactone] 12.5 mg PO DAILY #30 tab Cefuroxime [Ceftin] 500 mg PO BID 7 Days #14 tab Continue atenoloL [Tenormin] 25 mg PO DAILY ALPRAZolam [Xanax] 0.25 mg PO DAILY Hydroxychloroquine Sulfate [Plaquenil] 200 mg PO BID Acetaminophen-Codeine 300-30mg [Tylenol w/codeine #3] 1 tab PO Q12H PRN PRN Reason: Pain estradioL [Estrace] 0.5 mg PO DIRECTED Citalopram Hydrobromide [CeleXA] 10 mg PO DAILY Amitriptyline HCl [Elavil] 50 mg PO HS Gabapentin [Neurontin] 800 mg PO TID Diphenoxylate HCl/Atropine [Lomotil 2.5-0.025 mg Tablet] 1 tab PO QID PRN PRN Reason: Diarrhea Rosuvastatin Calcium [Crestor] 5 mg PO MYERS Acetaminophen Tab [Tylenol] 650 mg PO Q6H PRN PRN Reason: Pain Or Fever > 100.5 Magnesium 250 mg PO DAILY Discontinued Doxycycline [Vibramycin] 100 mg PO BID Discharge Medication List atenoloL [Tenormin] 25 mg PO DAILY 08/31/15 [History] ALPRAZolam [Xanax] 0.25 mg PO DAILY 01/06/16 [History] Gabapentin [Neurontin] 800 mg PO TID 07/17/22 [History] Hydroxychloroquine Sulfate [Plaquenil] 200 mg PO BID 07/17/22 [History] Acetaminophen Tab [Tylenol] 650 mg PO Q6H PRN 06/28/24 [History] Acetaminophen-Codeine 300-30mg [Tylenol w/codeine #3] 1 tab PO Q12H PRN 06/28/24 [History] Amitriptyline HCl [Elavil] 50 mg PO HS 06/28/24 [History] Citalopram Hydrobromide [CeleXA] 10 mg PO DAILY 06/28/24 [History] Diphenoxylate HCl/Atropine [Lomotil 2.5-0.025 mg Tablet] 1 tab PO QID PRN 06/28/24 [History] Magnesium 250 mg PO DAILY 06/28/24 [History] Rosuvastatin Calcium [Crestor] 5 mg PO MYERS 06/28/24 [History] estradioL [Estrace] 0.5 mg PO DIRECTED 06/28/24 [History] Aspirin 81 mg PO DAILY tab 07/01/24 [Rx] Cefuroxime [Ceftin] 500 mg PO BID 7 Days #14 tab 07/01/24 [Rx] Spironolactone [Aldactone] 12.5 mg PO DAILY #30 tab 07/01/24 [Rx] Follow up Appointment(s)/Referral(s): Angela Rice MD [Primary Care Provider] - 1-2 days Frankie James MD [STAFF PHYSICIAN] - 1 Week Discharge Disposition: HOME SELF-CARE
--- NOTE | 2024-07-01 08:20 | US ---
EXAMINATION TYPE: US liver DATE OF EXAM: 07/01/2024 COMPARISON: NONE CLINICAL INDICATION: Female, 78 years old with history of abx LFT; abn LFTs TECHNIQUE: Multiple sonographic images of the right upper quadrant are obtained. FINDINGS: EXAM MEASUREMENTS: Liver Length: 13.4 cm Gallbladder Wall: .1 cm CBD: .3 cm Right Kidney: 10.4 x 4.5 x 3.5 cm Pancreas: Tail obscured by overlying bowel gas Liver: Increased attenuation , no masses dilated ducts or cysts. Gallbladder: Limited due to postioning appears to be some echogenic foci seen. Evidence for sonographic Holland's sign: no CBD: wnl Right Kidney: No hydronephrosis or masses seen IMPRESSION: 1. No evidence for acute process. 2. Mild hepatic steatosis.
[2024-07-01 08:39] VITALS: BP 107/62; PULSE 86
[2024-07-01 08:50] LABS: HCT 34.9 % (34.0-46.0); HGB 11.6 gm/dL (11.4-16.0); Hypochromasia Slight; MCH 30.5 pg (25.0-35.0); MCHC 33.2 g/dL (31.0-37.0); Mean Platelet Volume 7.5; Platelet Count 179 k/uL (150-450); RBC 3.79 m/uL (3.80-5.40); RDW 14.7 % (11.5-15.5); WBC 3.8 k/uL (3.8-10.6)
[2024-07-01 09:05] LABS: ALT 118 U/L (4-34); AST 90 U/L (14-36); African American GFR (CKD) >90 (>60 ml/min/1.73 sqM); Alkaline Phosphatase 268 U/L (38-126); Anion Gap 2 mmol/L; Blood Urea Nitrogen 13 mg/dL (7-17); Calcium 8.9 mg/dL (8.4-10.2); Carbon Dioxide 25 mmol/L (22-30); Chloride 113 mmol/L (98-107); Glucose 99 mg/dL (74-99); Non-African American GFR(CKD) 80 (>60 ml/min/1.73 sqM); Potassium 4.1 mmol/L (3.5-5.1); Sodium 140 mmol/L (137-145); Total Bilirubin 0.4 mg/dL (0.2-1.3); Total Protein 5.3 g/dL (6.3-8.2)
--- NOTE | 2024-07-02 16:27 | P.PN ---
Subjective Progress Note Date: 07/01/24 Principal diagnosis: Reason for follow-up is fever question of pneumonia Patient is a 78-year-old female with a past medical history significant for atrial flutter atrial fibrillation rheumatoid arthritis and history of colon cancer patient was brought into the hospital for evaluation of fever, patient was complaining of some bilateral lower lower rib chest pain did have a CT angiogram of the chest bilateral effusion and patchy bibasilar opacity. On today's evaluation that is 07/01/2024, Patient is afebrile this morning patient denies having any chest pain shortness of breath patient cough is decreased intensity mostly dry in nature, the patient is breathing comfortably and currently on room air, patient denies any abdominal pain no diarrhea no nausea no vomiting, mention feeling better wants to go home. Patient white count is 3.8, creatinine 0.74 blood culture has been negative so far Objective - Vital Signs Vital signs: Vital Signs Temp 97.3 F L 07/01/24 00:00 Pulse 86 07/01/24 08:38 Resp 16 07/01/24 08:38 BP 107/62 07/01/24 08:38 Pulse Ox 94 L 07/01/24 08:38 FiO2 Intake & Output 06/30/24 07/01/24 07/01/24 18:59 06:59 18:59 Intake Total 318 Balance 318 Weight 79.2 kg Intake: IV 200 Oral 118 Other: Voiding Method Toilet Toilet Toilet # Voids 2 - Exam GENERAL DESCRIPTION: An elderly female lying in bed in no distress RESPIRATORY SYSTEM: Unlabored breathing , decreased breath sounds at bases HEART: S1 S2 regular rate and rhythm , ABDOMEN: Soft , no tenderness EXTREMITIES: No edema feet - Labs CBC & Chem 7: 07/01/24 07:45 07/01/24 07:45 Labs: Abnormal Lab Results - Last 24 Hours (Table) 07/01/24 07/01/24 Range/Units 07:45 07:45 RBC 3.79 L (3.80-5.40) m/uL Chloride 113 H (98-107) mmol/L AST 90 H (14-36) U/L ALT 118 H (4-34) U/L Alkaline Phosphatase 268 H (38-126) U/L Total Protein 5.3 L (6.3-8.2) g/dL Albumin 3.0 L (3.5-5.0) g/dL Microbiology - Last 24 Hours (Table) 06/29/24 10:02 Blood Culture - Preliminary Blood Assessment and Plan (1) Fever Status: Acute Code(s): R50.9 - FEVER, UNSPECIFIED SNOMED Code(s): 535141094 (2) Pneumonia Status: Acute Code(s): J18.9 - PNEUMONIA, UNSPECIFIED ORGANISM SNOMED Code(s): 412762196 (3) Penicillin allergy Status: Acute Code(s): Z88.0 - ALLERGY STATUS TO PENICILLIN SNOMED Code(s): 64119787 Plan: 1patient presented hospital with a fever patient is also complaining of bilateral lower rib cage pain did have some abnormal x-ray with a question of atelectasis versus pneumonia patient abdominal soft rectal examination no evidence of any cellulitis urine has been negative 2patient did have CT angiogram of the chest no PE bilateral effusion and bibasilar atelectasis 3patient seem to have shown overall improvement with Rocephin finishing therapy with the short course of oral Ceftin family the bedside questions concern answered Dictation was produced using [employer] dictation software. please excuse any grammatical, word or spelling errors. Time with Patient: Less than 30
[2024-07-04] MEDS ORDERED: ATORVASTATIN 10 MG TAB PO SCH (09:00)
== END 2024-07-01 11:46 | disposition home or self-care (01) | DRG 193 ==
LOC: EC 10:14 → 3SCARD 19:39
PROVIDERS: ADMIT Internal Medicine Geriatric Medicine; ATTEND Internal Medicine Geriatric Medicine
PROC: B2111ZZ Fluoroscopy of Multiple Coronary Arteries using Low Osmolar Contrast (ICD-10-PCS; 2024-06-30)
PROC: 4A023N7 Measurement of Cardiac Sampling and Pressure, Left Heart, Percutaneous Approach (ICD-10-PCS; principal; 2024-06-30 10:30)
DX: J18.9 Pneumonia, unspecified organism (principal); I21.4 Non-ST elevation (NSTEMI) myocardial infarction; M06.9 Rheumatoid arthritis, unspecified; C44.90 Unspecified malignant neoplasm of skin, unspecified; Z20.822 Contact with and (suspected) exposure to COVID-19; I10 Essential (primary) hypertension; I48.91 Unspecified atrial fibrillation; J40 Bronchitis, not specified as acute or chronic; E03.9 Hypothyroidism, unspecified; E78.5 Hyperlipidemia, unspecified; F32.A Depression, unspecified; G62.9 Polyneuropathy, unspecified; I07.1 Rheumatic tricuspid insufficiency; I25.10 Atherosclerotic heart disease of native coronary artery without angina pectoris; I27.20 Pulmonary hypertension, unspecified; K52.9 Noninfective gastroenteritis and colitis, unspecified; Z79.899 Other long term (current) drug therapy; Z85.038 Personal history of other malignant neoplasm of large intestine; Z85.828 Personal history of other malignant neoplasm of skin; Z87.891 Personal history of nicotine dependence; Z88.0 Allergy status to penicillin; Z90.710 Acquired absence of both cervix and uterus
CPT/HCPCS: 36415; 71046; 71275; 76705; 80053; 80074; 81001; 83605; 83880; 84145; 84484; 85025; 85027; 85652; 85730; 86140; 87040; 87636; 87651; 93005; 93306; 93458; 93970; 96361; 96365; 96366; 96368; 96375; 99285

== ENCOUNTER → 2024-08-30 | Outpatient (CLI) | payer MEDICARE ==
--- NOTE | 2024-08-30 14:16 | CT ---
EXAMINATION TYPE: CT lumbar spine wo con CT DLP: 660.2 mGycm, Automated exposure control for dose reduction was used. DATE OF EXAM: 08/30/2024 2:00 PM COMPARISON: Head CT 06/25/2024. CLINICAL INDICATION:Female, 79 years old with history of M51.06 MYELOPATHY, LUMBAR REGION; PHH, MYELO KAJAL TECHNIQUE: Multiple axial images were obtained from the midportion of T11 through the sacroiliac deanna nts. Soft tissue and bone windows in coronal and sagittal planes were obtained and reviewed. Contrast used: none. Oral contrast used: none. FINDINGS: Alignment: There are 5 lumbar type vertebral bodies are no spinal listhesis. Minimal levocurvature of the lumbar spine with apex at L3. Bone: No evidence of fracture is identified. Degenerative changes of both SI joints. Stable scleroti c focus within the right iliac bone measuring up to 6 mm. Multilevel facet arthropathy. Discs: Multilevel disc space narrowing with vacuum disc disease at L2-L3 and L5-S1. Incidental sacral Tarlov cysts. T12-L1: No spinal canal or neural foraminal stenosis is identified. L1-L2: Broad-based disc bulge resulting in and minimal central canal narrowing. No neuroforaminal serg nosis. L2-L3: Broad-based disc bulge with ligamentum flavum buckling and bilateral facet arthropathy resulti ng in mild to moderate central canal narrowing. Prominent posterior epidural fat. Mild bilateral neur al foraminal narrowing. L3-L4: Broad-based disc bulge with ligamentum flavum buckling and bilateral facet arthropathy resulti ng in mild to moderate central canal narrowing. Prominent posterior epidural fat. Mild bilateral neur al foraminal narrowing. L4-L5: Broad-based disc bulge with ligamentum flavum buckling and bilateral facet arthropathy resulti ng in mild central canal narrowing. No neuroforaminal stenosis. L5-S1: Bilateral facet arthropathy. No spinal canal or neural foraminal stenosis is identified. Other: There are 2 nonobstructive right renal calculi with largest measuring up to 3 mm. Similar ecta sindy of the infrarenal abdominal aorta measuring up to 2.6 cm. Similar left inferior renal cortical sm all hyperdense foci likely representing proteinaceous/hemorrhagic cyst. IMPRESSION: 1. No evidence for spinal fracture or aggressive osseous lesion. 2. Mild multilevel degenerative disc disease which is most pronounced at L2-L3 and L3-L4 with disc bu lge, ligamentum flavum buckling, and bilateral facet arthropathy resulting in mild to moderate centra l canal stenosis. Mild bilateral neural foraminal narrowing at these levels. [facility], , 08/30/2024 2:14 PM
== END | disposition home or self-care (01) ==
LOC: RADCTMAIN 13:43
PROVIDERS: ATTEND Family Medicine
DX: M51.06 Intervertebral disc disorders with myelopathy, lumbar region
CPT/HCPCS: 72131

== ENCOUNTER → 2025-02-10 | Outpatient (CLI) | payer MEDICARE ==
--- NOTE | 2025-02-12 20:08 | PE ---
EXAMINATION TYPE: PET CT fusion whole body DATE OF EXAM: 02/10/2025 CLINICAL INDICATION:Female, 79 years old with history of diffuse squamous cell carcinoma over body. TECHNIQUE: Following the intravenous administration of 12.75 mCi of F-18 FDG, whole body images are performed from the skull base to the Feet. Images are reviewed on the computer in the coronal, axia l, and sagittal planes. Reconstructed rotating images are created on independent workstation and rev iewed on the computer. A non-contrast CT is performed in conjunction with the PET scan. Glucose lev el 56 mg/dL CT DLP: 811 mGycm, Automated exposure control for dose reduction was used. COMPARISON: CT 03/06/2015, 08/30/2024, PET/CT None, MRI: None FINDINGS: Mediastinal SUV mean is 3.0. Hepatic parenchyma SUV mean is 2.5. SKULL BASE AND NECK: No suspicious radiotracer activity. 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 There is misregistration artifact scatt ered throughout the exam. CHEST, MEDIASTINUM, AND HILAR REGION: No suspicious radiotracer activity. ABDOMEN AND PELVIS: No suspicious radiotracer activity. MUSCULOSKELETAL STRUCTURES: No suspicious radiotracer activity. Physiologic uptake within the anterior leg compartment bilaterally. OTHER CT: Atherosclerosis of the arterial suture. Mild cardiomegaly. Mild coronary artery atheroscler osis. Fat-containing inguinal hernia. The uterus is surgically absent. Post surgical changes the righ t colon with suture identified. IMPRESSION: No suspicious radiotracer activity. [facility], , 02/12/2025 8:06 PM
== END | disposition home or self-care (01) ==
LOC: RADPETMAIN 10:29
PROVIDERS: ATTEND Internal Medicine Hematology & Oncology
DX: C44.82 Squamous cell carcinoma of overlapping sites of skin (principal); K40.90 Unilateral inguinal hernia, without obstruction or gangrene, not specified as recurrent; I51.7 Cardiomegaly
CPT/HCPCS: 78816; A9552

== ENCOUNTER → 2025-05-11 | Outpatient (CLI) | payer MEDICARE ==
--- NOTE | 2025-05-11 13:13 | MM ---
Reason for Exam: Screening (asymptomatic). Last mammogram was performed 2 year(s) and 5 month(s) ago. Patient History: Menarche at age 14. First Full-Term at age 21. Left ovary removed at age 44. Right ovary removed at age 44. Hysterectomy at age 44. Postmenopausal. Colorectal cancer, age 57. Currently using Estrogen, beginning at age 44 for 23 years, 5 months. Benign Excisional Biopsy on the right side. Daughter had breast cancer, age 52. Risk Values: Jessica 5 year model risk: 3.8%. NCI Lifetime model risk: 7.2%. Prior Study Comparison: 07/31/2020 Bilateral Screening Mammogram, [facility]. 09/12/2021 Bilateral Screening Mammogram, [facility]. 12/26/2022 Bilateral MG 3D screening mammo w/cad, [facility]. Tissue Density: There are scattered areas of fibroglandular density. Findings: Analyzed By CAD. There are small benign-appearing rounded calcifications redemonstrated scattered throughout the bilateral breasts. Benign appearing vascular calcification in the bilateral breasts is redemonstrated. There is no suspicious group of microcalcifications or new suspicious mass in either breast. Overall Assessment: Benign, BI-RAD 2 Management: Screening Mammogram of both breasts in 1 year. . Patient should continue monthly self-breast exams. A clinical breast exam by your physician is recommended on an annual basis. This exam should not preclude additional follow-up of suspicious palpable abnormalities. Note on Jessica scores and lifetime risk: 1. A Jessica score greater than 3% is considered moderate risk. If this is the case, consider specialist referral to assess eligibility for a risk reducing agent. 2. If overall lifetime risk for the development of breast cancer is 20% or higher, the patient may qualify for future screening with alternating mammogram and breast MRI. [facility], , 05/11/2025 1:10 PM. Electronically signed and approved by: Tato Shoemaker M.D.
--- NOTE | 2025-05-11 14:31 | BD ---
EXAMINATION TYPE: Axial Bone Density DATE OF EXAM: 05/11/2025 CLINICAL HISTORY: 79 years old Female. ICD-10 CODE: [id number] MONO DISORDER , Additional History: Height: 63.5 Weight: 151.7 FRAX RISK QUESTIONS: Alcohol (3 or more units per day): no Family History (Parent hip fracture): no Glucocorticoids (More than 3mos): no (Ex: prednisone, prednisolone, methylprednisolone, dexamethasone, and hydrocortisone). History of Fracture in Adulthood: no Secondary Osteoporosis: 1. Type 1 Diabetes: no 2. Hyperthyroidism: no 3. Menopause before 45: no 4. Malnutrition: no 5. Chronic liver disease: no Rheumatoid Arthritis: yes Current Tobacco Use: no RISK FACTORS HISTORY OF: Hip Fracture (Right/Left): no Spine Fracture: no History of Wrist Fracture: no Surgery to Spine/Hip(right/left)/Wrist (right/left): no MEDICATIONS: Thyroid Medications: no Osteoporosis Medications: no EXAM MEASUREMENTS: Bone mineral densitometry was performed using the [employer] System. Bone mineral density as measured about the Lumbar spine is: ----- L1-L4(G/cm2): 1.303 T Score Values are as follows: ----- L1: 0.0 ----- L2: 0.9 ----- L3: 1.6 ----- L4: 1.2 ----- L1-L4: 1.0 Z Score Values are as follows: ----- L1: 1.6 ----- L2: 2.6 ----- L3: 3.3 ----- L4: 2.9 ----- L1-L4: 2.7 Bone mineral density has: decreased -3.8 % since study of: 12/26/2022 Bone mineral density about the R hip (g/cm2): 0.917 Bone mineral density about the L hip (g/cm2): 0.844 T Score values are as follows: -----R Neck: -1.0 -----L Neck: -1.9 -----R Total: -0.7 -----L Total: -1.3 Z Score values are as follows: -----R Neck: 1.0 -----L Neck: 0.1 -----R Total: 1.1 -----L Total: 0.5 Bone mineral density has: increased 0.6 % since study of: 12/26/2022 FRAX%s: The graph provided illustrates a 18.3% chance for a major osteoporotic fx and a 5.3% chance f or the hips probability for fx in 10 years time. IMPRESSION: Osteopenia (T Score between -2.5 and -1) remains present. There is slightly increased risk of fracture and the patient may be considered for treatment. Re-Screen 2-5 years. NOTE: T-SCORE=SD OF THE YOUNG ADULT MEAN. [facility], , 05/11/2025 2:29 PM
== END | disposition home or self-care (01) ==
LOC: RADMAMWWP 12:36
PROVIDERS: ATTEND Family Medicine
DX: Z12.31 Encounter for screening mammogram for malignant neoplasm of breast (principal); N95.9 Unspecified menopausal and perimenopausal disorder; R92.323 Mammographic fibroglandular density, bilateral breasts; R92.1 Mammographic calcification found on diagnostic imaging of breast; M85.89 Other specified disorders of bone density and structure, multiple sites; Z78.0 Asymptomatic menopausal state; Z80.3 Family history of malignant neoplasm of breast
CPT/HCPCS: 77063; 77067; 77080